=== PATIENT | male | born 1985 | race American Indian/Alaskan Native ===

== ENCOUNTER 2016-11-04 11:41 | Inpatient (IN) | payer MEDICAID ==
[2016-11-04] MEDS ORDERED: NACL 0.9% 1000 ML 1,000 ML IV ONE (12:11)
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
--- NOTE | 2016-11-04 12:45 | XRay Report ---
AP CHEST: HISTORY: Shortness of breath, chills, nausea Near-complete opacification of the right lung is unchanged since 05/07/16. Large areas of atelectasis in the right lung are suspected. Superimposed infiltrate cannot be excluded. The left lung is hyperaerated but clear. Heart size is grossly normal. No overwhelming change since 05/07/16 exam.
[2016-11-04 13:04] LABS: Basophils % (Auto) 0.4 % (0.0-1.8); Eosinophils % (Auto) 0.5 % (0.0-4.3); Hematocrit 37.3 % (35.5-45.6); Hemoglobin 12.2 gm/dl (11.8-15.2); Mean Corpuscular HGB Conc 33 % (32-34); Mean Corpuscular Hemoglobin 28 pg (28-32); Mean Corpuscular Volume 85 fl (84-94); Platelet Count 231 K/mm3 (140-440); Red Blood Count 4.41 M/mm3 (3.65-5.03); White Blood Count 9.8 K/mm3 (4.5-11.0)
[2016-11-04 13:19] LABS: Alanine Aminotransferase 7 units/L (7-56); Albumin 2.9 g/dL (3.9-5); Albumin/Globulin Ratio 0.6 %; Alkaline Phosphatase 49 units/L (35-129); Anion Gap 20 mmol/L; BUN/Creatinine Ratio 23.33; Blood Urea Nitrogen 14 mg/dL (9-20); Calcium 8.1 mg/dL (8.4-10.2); Carbon Dioxide 19 mmol/L (22-30); Glucose 116 mg/dL (75-100); Sodium 137 mmol/L (137-145); Total Protein 7.8 g/dL (6.3-8.2)
[2016-11-04 15:31] LABS: Bacteria,Urine 1+ /HPF (Negative); Bilirubin,Urine NEG (Negative); Blood,Urine LG (Negative); Ketones,Urine NEG (Negative); Leukocyte Esterase,Urine LG (Negative); Mucus,Urine FEW /HPF; Nitrite,Urine NEG (Negative); Urobilinogen,Urine < 2.0 mg/dL (<2.0)
[2016-11-04 15:49] LABS: Protein,Urine >500 mg/dL (Negative); RBC,Urine > 182.0 /HPF (0.0-6.0); WBC,Urine > 182.0 /HPF (0.0-6.0)
[2016-11-04] MEDS ORDERED: TYLENOL PO PRN (16:21)
[2016-11-04] MEDS ORDERED: PROVENTIL IH PRN (16:21)
--- NOTE | 2016-11-04 16:25 | History and Physical Report ---
History of Present Illness Chief complaint: I just feel sick History of present illness: 31 YO Male with C-6 Paraplegia, Urinary retention presents to ED for evaluation. Pt states that he has experienced chills, loose stools, nausea for the past 6 days, and has felt progressively weak over the past 1 day. Pt denies CP, Palpitations, Syncope, recent ill contacts. Pt seen and evaluated in ED and found to have suprapubic tenderness and evidence of UTI. Past History Past Medical History: other (Paraplegia, urinary retention) Past Surgical History: Other (Suprapubic Catheter, Back surgery) Social history: single. denies: smoking, alcohol abuse, prescription drug abuse Family history: no significant family history (reviewed) Medications and Allergies Allergies Allergy/AdvReac Type Severity Reaction Status Date / Time No Known Allergies Allergy Unverified 10/07/15 16:50 Home Medications Medication Instructions Recorded Confirmed Last Taken Type Amoxicillin/K Clav Tab [Augmentin 1 tab PO Q12HR #14 tab 05/08/16 Unknown Rx 875 mg] Multivitamin Tab [Multiple Vitamin 1 each PO QDAY #30 tablet 05/08/16 Unknown Rx TAB (Theragran)] oxyCODONE /ACETAMINOPHEN [Percocet 1 tab PO Q6H PRN #30 tablet 05/08/16 Unknown Rx 5/325 mg] Potassium Chloride [K-Dur] 20 meq PO QDAY #14 tablet 05/09/16 Unknown Rx Active Meds: Active Medications Acetaminophen (Tylenol) 650 mg PO Q4H PRN PRN Reason: Pain MILD(1-3)/Fever >100.5/WILEY Albuterol (Proventil) 2.5 mg IH Q4HRT PRN PRN Reason: Shortness Of Breath Sodium Chloride (Nacl 0.45% 1000 Ml) 1,000 mls @ 42 mls/hr IV DIRECT FRANC Ceftriaxone Sodium (Rocephin/Ns 2 Gm/100 Ml) 2 gm in 100 mls @ 200 mls/hr IV Q24HR FRANC PRN Reason: Protocol Review of Systems Constitutional: chills, no weight loss, no weight gain, no weakness Ears, nose, mouth and throat: no ear pain, no ear discharge, no tinnitis, no decreased hearing, no nose pain, no nasal congestion Cardiovascular: no chest pain, no orthopnea, no palpitations, no rapid/ irregular heart beat, no edema Respiratory: no cough, no cough with sputum, no excessive sputum, no hemoptysis Gastrointestinal: nausea, no vomiting, no diarrhea, no constipation, no change in bowel habits Genitourinary Male: no hematuria, no discharge Rectal: no pain, no incontinence, no bleeding Musculoskeletal: no neck stiffness, no neck pain, no shooting arm pain, no arm numbness/tingling Integumentary: no rash, no pruritis, no redness, no sores, no wounds Neurological: no head injury, no transient paralysis, no paralysis, no weakness , no parathesias, no numbness Psychiatric: no anxiety, no memory loss, no change in sleep habits, no sleep disturbances Endocrine: no cold intolerance, no heat intolerance, no polyphagia, no excessive thirst, no polydipsia, no polyuria Hematologic/Lymphatic: no easy bruising, no easy bleeding Allergic/Immunologic: no urticaria, no allergic rhinitis, no wheezing Exam - Constitutional Vitals: Temp Pulse Resp BP Pulse Ox 98.7 F 92 H 18 139/110 98 11/04/16 12:05 11/04/16 12:05 11/04/16 12:05 11/04/16 12:05 11/04/16 12:05 General appearance: Present: mild distress - EENT Eyes: Present: PERRL ENT: hearing intact, clear oral mucosa - Neck Neck: Present: supple, normal ROM - Respiratory Respiratory: bilateral: diminished - Cardiovascular Heart Sounds: Present: S1 & S2. Absent: rub, click - Extremities Extremities: pulses symmetrical, No edema Peripheral Pulses: within normal limits - Abdominal General gastrointestinal: Present: soft, tender, normal bowel sounds Localized gastrointestinal: tender: suprapubic Male genitourinary: Present: normal - Integumentary Integumentary: Present: clear, dry, decreased turgor - Musculoskeletal Musculoskeletal: generalized weakness - Psychiatric Psychiatric: appropriate mood/affect, intact judgment & insight - Neurologic Neurologic: CNII-XII intact, no moves all extremities, no gait normal Results - Labs CBC & Chem 7: 11/04/16 12:45 11/04/16 12:45 Labs: Abnormal lab results 11/04/16 11/04/16 11/04/16 Range/Units 12:45 12:45 14:57 RDW 16.0 H (13.2-15.2) % Lymph % (Auto) 11.9 L (13.4-35.0) % [place] % (Auto) 14.3 H (0.0-7.3) % [place] # 1.4 H (0.0-0.8) K/mm3 Seg Neutrophils % 72.9 H (40.0-70.0) % Carbon Dioxide 19 L (22-30) mmol/L Creatinine 0.6 L (0.8-1.5) mg/dL Glucose 116 H (75-100) mg/dL Calcium 8.1 L (8.4-10.2) mg/dL Albumin 2.9 L (3.9-5) g/dL Urine WBC (Auto) > 182.0 H (0.0-6.0) /HPF Assessment and Plan - Patient Problems (1) Acute UTI (urinary tract infection) Current Visit: Yes Status: Acute Plan to address problem: IV abx, ivf, supportive care. (2) Metabolic acidosis Current Visit: Yes Status: Acute Plan to address problem: IVF replacement, treat UTI, repeat lactic acid (3) Severe malnutrition Current Visit: Yes Status: Acute Plan to address problem: encourage increased protein intake (4) Paraplegia Current Visit: Yes Status: Chronic Plan to address problem: supportive care, q 2 turns, (5) Dehydration Current Visit: No Status: Acute Plan to address problem: IVF resuscitation, monitor uop q shift (6) DVT prophylaxis Current Visit: Yes Status: Acute
[2016-11-04] MEDS: ROCEPHIN/NS 2 GM/100 ML 2 GM/100 ML BAG IV SCH (17:56)
[2016-11-04] MEDS: NACL 0.45% 1000 ML 1,000 ML IV SCH (22:59)
[2016-11-05] MEDS ORDERED: PERCOCET 5/325 PO PRN (07:53)
[2016-11-05 09:21] LABS: Anion Gap 20 mmol/L; BUN/Creatinine Ratio 22.85; Blood Urea Nitrogen 16 mg/dL (9-20); Calcium 7.9 mg/dL (8.4-10.2); Carbon Dioxide 20 mmol/L (22-30); Chloride 100.6 mmol/L (98-107); Glucose 83 mg/dL (75-100); Potassium 3.1 mmol/L (3.6-5.0); Sodium 137 mmol/L (137-145)
[2016-11-05] MEDS: THERAGRAN Tab PO SCH (11:24)
[2016-11-05] MEDS: ROCEPHIN/NS 2 GM/100 ML 2 GM/100 ML BAG IV SCH (11:25)
[2016-11-05] MEDS ORDERED: K-DUR PO ONE ×2 (11:36→12:00)
--- NOTE | 2016-11-05 11:40 | Progress Note ---
Assessment and Plan Assessment and plan: Sepsis secondary to UTI - Sepsis evidenced by tachycardia and fever - Patient is on IV ceftriaxone - Urine culture is pending Severe malnutrition -Nutrition consult placed Paraplegia - Supportive care DVT prophylaxis -On Lovenox Disposition -Possible discharge tomorrow History Interval history: Patient was seen and evaluated this morning, patient denied any fever or chills. Hospitalist Physical - Physical exam Narrative exam: Not in cardiopulmonary distress. The patient is emaciated. Vital signs as documented. Head exam is unremarkable. No scleral icterus . Neck is without jugular venous distension, thyromegaly, or carotid bruits. Lungs are clear to auscultation. Cardiac exam reveals regular rate and Rhythm. Abdominal exam reveal suprapubic catheter. Extremities paraplegia. 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 - Constitutional Vitals: Temp Pulse Resp BP Pulse Ox 97.3 F L 78 18 81/60 98 11/05/16 07:30 11/05/16 07:30 11/05/16 07:30 11/05/16 07:30 11/05/16 10:00 General appearance: Present: mild distress Results - Labs CBC & Chem 7: 11/04/16 12:45 11/05/16 08:41 Labs: Laboratory Last Values WBC 9.8 K/mm3 (4.5-11.0) 11/04/16 12:45 RBC 4.41 M/mm3 (3.65-5.03) 11/04/16 12:45 Hgb 12.2 gm/dl (11.8-15.2) 11/04/16 12:45 Hct 37.3 % (35.5-45.6) 11/04/16 12:45 MCV 85 fl (84-94) 11/04/16 12:45 MCH 28 pg (28-32) 11/04/16 12:45 MCHC 33 % (32-34) 11/04/16 12:45 RDW 16.0 % (13.2-15.2) H 11/04/16 12:45 Plt Count 231 K/mm3 (140-440) 11/04/16 12:45 Lymph % (Auto) 11.9 % (13.4-35.0) L 11/04/16 12:45 [place] % (Auto) 14.3 % (0.0-7.3) H 11/04/16 12:45 Eos % (Auto) 0.5 % (0.0-4.3) 11/04/16 12:45 Baso % (Auto) 0.4 % (0.0-1.8) 11/04/16 12:45 Lymph # 1.2 K/mm3 (1.2-5.4) 11/04/16 12:45 [place] # 1.4 K/mm3 (0.0-0.8) H 11/04/16 12:45 Eos # 0.1 K/mm3 (0.0-0.4) 11/04/16 12:45 Baso # 0.0 K/mm3 (0.0-0.1) 11/04/16 12:45 Seg Neutrophils % 72.9 % (40.0-70.0) H 11/04/16 12:45 Seg Neutrophils # 7.1 K/mm3 (1.8-7.7) 11/04/16 12:45 Sodium 137 mmol/L (137-145) 11/05/16 08:41 Potassium 3.1 mmol/L (3.6-5.0) L 11/05/16 08:41 Chloride 100.6 mmol/L (98-107) 11/05/16 08:41 Carbon Dioxide 20 mmol/L (22-30) L 11/05/16 08:41 Anion Gap 20 mmol/L 11/05/16 08:41 BUN 16 mg/dL (9-20) 11/05/16 08:41 Creatinine 0.7 mg/dL (0.8-1.5) L 11/05/16 08:41 Estimated GFR > 60 ml/min 11/05/16 08:41 BUN/Creatinine Ratio 22.85 % 11/05/16 08:41 Glucose 83 mg/dL (75-100) 11/05/16 08:41 Lactic Acid 1.80 mmol/L (0.7-2.0) 11/04/16 12:45 Calcium 7.9 mg/dL (8.4-10.2) L 11/05/16 08:41 Total Bilirubin 1.20 mg/dL (0.1-1.2) 11/04/16 12:45 AST 10 units/L (5-40) 11/04/16 12:45 ALT 7 units/L (7-56) 11/04/16 12:45 Alkaline Phosphatase 49 units/L (35-129) 11/04/16 12:45 Total Protein 7.8 g/dL (6.3-8.2) 11/04/16 12:45 Albumin 2.9 g/dL (3.9-5) L 11/04/16 12:45 Albumin/Globulin Ratio 0.6 % 11/04/16 12:45 Urine Color Red (Yellow) 11/04/16 14:57 Urine Turbidity Cloudy (Clear) 11/04/16 14:57 Urine pH 7.0 (5.0-7.0) 11/04/16 14:57 Ur Specific [place] 1.014 (1.003-1.030) 11/04/16 14:57 Urine Protein >500 mg/dL (Negative) 11/04/16 14:57 Urine Glucose (UA) 50 mg/dL (Negative) 11/04/16 14:57 Urine Ketones Neg mg/dL (Negative) 11/04/16 14:57 Urine Blood Lg (Negative) 11/04/16 14:57 Urine Nitrite Neg (Negative) 11/04/16 14:57 Urine Bilirubin Neg (Negative) 11/04/16 14:57 Urine Urobilinogen < 2.0 mg/dL (<2.0) 11/04/16 14:57 Ur Leukocyte Esterase Lg (Negative) 11/04/16 14:57 Urine WBC (Auto) > 182.0 /HPF (0.0-6.0) H 11/04/16 14:57 Urine RBC (Auto) > 182.0 /HPF (0.0-6.0) 11/04/16 14:57 U Epithel Cells (Auto) 1.0 /HPF (0-13.0) 11/04/16 14:57 Urine Bacteria (Auto) 1+ /HPF (Negative) 11/04/16 14:57 Urine WBC Clumps 3+ /HPF 11/04/16 14:57 Urine Mucus Few /HPF 11/04/16 14:57
[2016-11-05] MEDS: LOVENOX SUB-Q SCH (23:06)
[2016-11-05] MEDS: NACL 0.45% 1000 ML 1,000 ML IV SCH (23:35)
[2016-11-06 08:13] LABS: Basophils % (Auto) 0.4 % (0.0-1.8); Eosinophils % (Auto) 1.2 % (0.0-4.3); Hematocrit 36.4 % (35.5-45.6); Mean Corpuscular HGB Conc 33 % (32-34); Mean Corpuscular Hemoglobin 28 pg (28-32); Mean Corpuscular Volume 84 fl (84-94); Platelet Count 255 K/mm3 (140-440); Red Blood Count 4.32 M/mm3 (3.65-5.03); Red Cell Distribution Width 16.3 % (13.2-15.2); White Blood Count 12.2 K/mm3 (4.5-11.0)
[2016-11-06 08:36] LABS: Anion Gap 22 mmol/L; Blood Urea Nitrogen 18 mg/dL (9-20); Calcium 8.3 mg/dL (8.4-10.2); Carbon Dioxide 19 mmol/L (22-30); Chloride 101.2 mmol/L (98-107); Glucose 79 mg/dL (75-100); Potassium 3.7 mmol/L (3.6-5.0); Sodium 138 mmol/L (137-145)
--- NOTE | 2016-11-06 08:44 | Progress Note ---
Assessment and Plan Assessment and plan: Severe sepsis with hypotension secondary to UTI - Sepsis evidenced by tachycardia, hypotension and fever - The BP is normal when checked with small BP cuff - Patient is on IV ceftriaxone - Obtain blood culture - Urine culture is pending Severe malnutrition -Nutrition consult placed Paraplegia - Supportive care DVT prophylaxis -On Lovenox Disposition - Continue inpatient care History Interval history: Patient was seen and evaluated this morning, patient denied any fever or chills. Last night the patient has low blood pressure and was given bolus of normal saline. His blood pressure this morning was low, Bp was normal when checked with small cuff. Hospitalist Physical - Physical exam Narrative exam: Not in cardiopulmonary distress. The patient is emaciated. Vital signs as documented. Head exam is unremarkable. No scleral icterus. Neck is without jugular venous distension, thyromegaly, or carotid bruits. Lungs are clear to auscultation. Cardiac exam reveals regular rate and Rhythm. Abdominal exam reveal suprapubic catheter. Extremities paraplegia. 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 - Constitutional Vitals: Temp Pulse Resp BP Pulse Ox 99.3 F 104 H 14 67/37 97 11/06/16 08:15 11/05/16 23:15 11/06/16 08:15 11/06/16 08:15 11/06/16 03:01 General appearance: Present: mild distress Results - Labs CBC & Chem 7: 11/06/16 07:55 11/06/16 07:55 Labs: Laboratory Last Values WBC 12.2 K/mm3 (4.5-11.0) H 11/06/16 07:55 RBC 4.32 M/mm3 (3.65-5.03) 11/06/16 07:55 Hgb 12.0 gm/dl (11.8-15.2) 11/06/16 07:55 Hct 36.4 % (35.5-45.6) 11/06/16 07:55 MCV 84 fl (84-94) 11/06/16 07:55 MCH 28 pg (28-32) 11/06/16 07:55 MCHC 33 % (32-34) 11/06/16 07:55 RDW 16.3 % (13.2-15.2) H 11/06/16 07:55 Plt Count 255 K/mm3 (140-440) 11/06/16 07:55 Lymph % (Auto) 10.5 % (13.4-35.0) L 11/06/16 07:55 [place] % (Auto) 7.7 % (0.0-7.3) H 11/06/16 07:55 Eos % (Auto) 1.2 % (0.0-4.3) 11/06/16 07:55 Baso % (Auto) 0.4 % (0.0-1.8) 11/06/16 07:55 Lymph # 1.3 K/mm3 (1.2-5.4) 11/06/16 07:55 [place] # 0.9 K/mm3 (0.0-0.8) H 11/06/16 07:55 Eos # 0.1 K/mm3 (0.0-0.4) 11/06/16 07:55 Baso # 0.0 K/mm3 (0.0-0.1) 11/06/16 07:55 Seg Neutrophils % 80.2 % (40.0-70.0) H 11/06/16 07:55 Seg Neutrophils # 9.8 K/mm3 (1.8-7.7) H 11/06/16 07:55 Sodium 138 mmol/L (137-145) 11/06/16 07:55 Potassium 3.7 mmol/L (3.6-5.0) 11/06/16 07:55 Chloride 101.2 mmol/L (98-107) 11/06/16 07:55 Carbon Dioxide 19 mmol/L (22-30) L 11/06/16 07:55 Anion Gap 22 mmol/L 11/06/16 07:55 BUN 18 mg/dL (9-20) 11/06/16 07:55 Creatinine 0.8 mg/dL (0.8-1.5) 11/06/16 07:55 Estimated GFR > 60 ml/min 11/06/16 07:55 BUN/Creatinine Ratio 22.50 % 11/06/16 07:55 Glucose 79 mg/dL (75-100) 11/06/16 07:55 Lactic Acid 1.80 mmol/L (0.7-2.0) 11/04/16 12:45 Calcium 8.3 mg/dL (8.4-10.2) L 11/06/16 07:55 Total Bilirubin 1.20 mg/dL (0.1-1.2) 11/04/16 12:45 AST 10 units/L (5-40) 11/04/16 12:45 ALT 7 units/L (7-56) 11/04/16 12:45 Alkaline Phosphatase 49 units/L (35-129) 11/04/16 12:45 Total Protein 7.8 g/dL (6.3-8.2) 11/04/16 12:45 Albumin 2.9 g/dL (3.9-5) L 11/04/16 12:45 Albumin/Globulin Ratio 0.6 % 11/04/16 12:45 Urine Color Red (Yellow) 11/04/16 14:57 Urine Turbidity Cloudy (Clear) 11/04/16 14:57 Urine pH 7.0 (5.0-7.0) 11/04/16 14:57 Ur Specific [place] 1.014 (1.003-1.030) 11/04/16 14:57 Urine Protein >500 mg/dL (Negative) 11/04/16 14:57 Urine Glucose (UA) 50 mg/dL (Negative) 11/04/16 14:57 Urine Ketones Neg mg/dL (Negative) 11/04/16 14:57 Urine Blood Lg (Negative) 11/04/16 14:57 Urine Nitrite Neg (Negative) 11/04/16 14:57 Urine Bilirubin Neg (Negative) 11/04/16 14:57 Urine Urobilinogen < 2.0 mg/dL (<2.0) 11/04/16 14:57 Ur Leukocyte Esterase Lg (Negative) 11/04/16 14:57 Urine WBC (Auto) > 182.0 /HPF (0.0-6.0) H 11/04/16 14:57 Urine RBC (Auto) > 182.0 /HPF (0.0-6.0) 11/04/16 14:57 U Epithel Cells (Auto) 1.0 /HPF (0-13.0) 11/04/16 14:57 Urine Bacteria (Auto) 1+ /HPF (Negative) 11/04/16 14:57 Urine WBC Clumps 3+ /HPF 11/04/16 14:57 Urine Mucus Few /HPF 11/04/16 14:57
[2016-11-06] MEDS ORDERED: NACL 0.9% 1000 ML 1,000 ML IV SCH (09:00)
[2016-11-06] MEDS: THERAGRAN Tab PO SCH (09:55)
[2016-11-06] MEDS: ROCEPHIN/NS 2 GM/100 ML 2 GM/100 ML BAG IV SCH (09:55)
[2016-11-06] MEDS: LOVENOX SUB-Q SCH (21:51)
[2016-11-07 07:00] LABS: Basophils % (Auto) 1.5 % (0.0-1.8); Eosinophils % (Auto) 4.2 % (0.0-4.3); Hematocrit 33.6 % (35.5-45.6); Hemoglobin 11.1 gm/dl (11.8-15.2); Mean Corpuscular HGB Conc 33 % (32-34); Mean Corpuscular Hemoglobin 28 pg (28-32); Mean Corpuscular Volume 84 fl (84-94); Platelet Count 284 K/mm3 (140-440); Red Blood Count 4.02 M/mm3 (3.65-5.03); Red Cell Distribution Width 16.1 % (13.2-15.2); White Blood Count 11.2 K/mm3 (4.5-11.0)
[2016-11-07 07:13] LABS: Alanine Aminotransferase 8 units/L (7-56); Albumin/Globulin Ratio 0.7 %; Alkaline Phosphatase 60 units/L (35-129); Anion Gap 18 mmol/L; BUN/Creatinine Ratio 25.71; Blood Urea Nitrogen 18 mg/dL (9-20); Carbon Dioxide 21 mmol/L (22-30); Chloride 103.4 mmol/L (98-107); Glucose 104 mg/dL (75-100); Potassium 3.6 mmol/L (3.6-5.0); Sodium 139 mmol/L (137-145); Total Protein 7.5 g/dL (6.3-8.2)
[2016-11-07 07:40] VITALS: BP 93/66
[2016-11-07] MEDS: ROCEPHIN/NS 2 GM/100 ML 2 GM/100 ML BAG IV SCH (10:00)
[2016-11-07] MEDS: THERAGRAN Tab PO SCH (11:00)
--- NOTE | 2016-11-07 11:30 | Discharge Summary ---
Providers - Providers Date of Admission: 11/04/16 16:21 Date of discharge: 11/07/16 Attending physician: GUADALUPE CANO MD 11/05/16 07:54 Consult to Dietitian/Nutrition [CONS] Routine Physician Instructions: Reason For Exam: Reason for Consult: Malnutrition 11/06/16 15:54 Consult to Wound/ET Nurse [CONS] Routine Reason For Exam: wound eval Primary care physician: BANK APPRAISER Hospitalization Reason for admission: sepsis, UTI Condition: Stable Hospital course: 31 YO Male with C-6 Paraplegia, Urinary retention presents to ED for evaluation. Pt states that he has experienced chills, loose stools, nausea for the past 6 days, and has felt progressively weak over the past 1 day. Pt denies CP, Palpitations, Syncope, recent ill contacts. Pt seen and evaluated in ED and found to have suprapubic tenderness and evidence of UTI. Patient was admitted to the floor and he was managed for sepsis secondary to UTI according to sepsis protocol with IV antibiotics and fluids. Lactic acid level was normal. Blood cultures negative so far, urine cultures still pending. Patient's WBC Count trended down. Yesterday the patient has recovered to low blood pressure but when it was rechecked was small BP cuff it was normal. Patient was discharged with by mouth Levaquin to be continued as an outpatient. Patient has suprapubic catheter and was change it during this admission. Patient was hemodynamically stable at the time of discharge. Patient's concerns and questions what I decided the bedside. Patient discharged home. Disposition: TO HOME OR SELFCARE Time spent for discharge: 31 minutes - Discharge Diagnoses (1) Sepsis Status: Acute Qualifiers: Sepsis type: S (2) Acute UTI (urinary tract infection) Status: Acute (3) UTI (urinary tract infection) Status: Acute Qualifiers: Urinary tract infection type: U Hematuria presence: H Indwelling urinary catheter type: I Encounter type: E (4) Paraplegia Status: Chronic Core Measure Documentation - Palliative Care Palliative Care/ Comfort Measures: Not Applicable - Core Measures Any of the following diagnoses?: none Exam - Physical Exam Narrative exam: Not in cardiopulmonary distress. The patient is emaciated. Vital signs as documented. Head exam is unremarkable. No scleral icterus. Neck is without jugular venous distension, thyromegaly, or carotid bruits. Lungs are clear to auscultation. Cardiac exam reveals regular rate and Rhythm. Abdominal exam reveal suprapubic catheter. Extremities paraplegia. 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 - Constitutional Vitals: Temp Pulse Resp BP Pulse Ox 98.7 F 86 20 93/66 96 11/07/16 07:34 11/07/16 07:34 11/07/16 07:34 11/07/16 07:34 11/07/16 08:42 Plan Activity: other (Paraplegic) Weight Bearing Status: Non-Weight Bearing Diet: regular Follow up with: PRIMARY CARE, [Primary Care Provider] - 3-5 Days Prescriptions: Levofloxacin [Levaquin TAB] 500 mg PO QDAY #5 tablet
== END 2016-11-07 15:00 | disposition home or self-care (01) | DRG 871 ==
LOC: ED 11:41 → 3A 16:21
PROVIDERS: ADMIT Internal Medicine; ATTEND Internal Medicine
DX: A41.9 Sepsis, unspecified organism (principal); E43 Unspecified severe protein-calorie malnutrition; N39.0 Urinary tract infection, site not specified; E86.0 Dehydration; G82.20 Paraplegia, unspecified; R33.9 Retention of urine, unspecified; E87.2 Acidosis; Z68.1 Body mass index [BMI] 19.9 or less, adult; R65.20 Severe sepsis without septic shock
CPT/HCPCS: 36415; 71010; 80048; 80053; 81001; 82140; 85025; 87040; 87086; 96361; 96365; J0696; J1650; J7030

== ENCOUNTER 2016-12-05 08:00 | Outpatient (CLI) | payer MEDICAID ==
[2016-12-05] MEDS ORDERED: XYLOCAINE TOPICAL 4% TP ONE ×2 (08:15→08:23)
[2016-12-05] MEDS ORDERED: SILVER NITRATE TP ONE ×3 (11:17→16:12)
== END 2016-12-05 08:01 | disposition home or self-care (01) ==
LOC: WOUND 08:00
PROVIDERS: ATTEND Internal Medicine
DX: L97.521 Non-pressure chronic ulcer of other part of left foot limited to breakdown of skin (principal); L97.511 Non-pressure chronic ulcer of other part of right foot limited to breakdown of skin; L89.624 Pressure ulcer of left heel, stage 4; L89.522 Pressure ulcer of left ankle, stage 2; E44.0 Moderate protein-calorie malnutrition; G99.0 Autonomic neuropathy in diseases classified elsewhere; G82.54 Quadriplegia, C5-C7 incomplete; Z87.891 Personal history of nicotine dependence
CPT/HCPCS: 11042; G0463

== ENCOUNTER 2016-12-12 08:01 | Outpatient (CLI) | payer MEDICAID ==
[2016-12-12] MEDS ORDERED: XYLOCAINE TOPICAL 2% ONE (08:26)
[2016-12-12] MEDS ORDERED: XYLOCAINE TOPICAL 2% TP ONE (08:34)
[2016-12-12] MEDS ORDERED: SILVER NITRATE TP ONE ×2 (09:08→15:39)
== END 2016-12-12 08:02 | disposition home or self-care (01) ==
LOC: WOUND 08:01
PROVIDERS: ATTEND Internal Medicine
DX: L97.521 Non-pressure chronic ulcer of other part of left foot limited to breakdown of skin (principal); L97.511 Non-pressure chronic ulcer of other part of right foot limited to breakdown of skin; L89.624 Pressure ulcer of left heel, stage 4; L89.522 Pressure ulcer of left ankle, stage 2; E44.0 Moderate protein-calorie malnutrition; G82.20 Paraplegia, unspecified; Z87.891 Personal history of nicotine dependence

== ENCOUNTER 2016-12-19 08:25 | Outpatient (CLI) | payer MEDICAID | END 2016-12-19 08:26 | disposition home or self-care (01) | LOC: WOUND 08:25 | PROVIDERS: ATTEND Internal Medicine | DX: L89.624 Pressure ulcer of left heel, stage 4 (principal); L89.522 Pressure ulcer of left ankle, stage 2; L97.521 Non-pressure chronic ulcer of other part of left foot limited to breakdown of skin; L97.511 Non-pressure chronic ulcer of other part of right foot limited to breakdown of skin; E44.0 Moderate protein-calorie malnutrition; G99.0 Autonomic neuropathy in diseases classified elsewhere; G82.54 Quadriplegia, C5-C7 incomplete; Z87.891 Personal history of nicotine dependence ==

== ENCOUNTER 2016-12-29 11:46 | Emergency (ER) | payer MEDICAID ==
[2016-12-29 14:16] VITALS: BP 100/65
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
--- NOTE | 2016-12-29 15:29 | XRay Report ---
Single view chest: Compared to 11/04/16. Findings: Shift of mediastinum to the right. Decrease in volume of right lung which is visualized minimally peripherally. Otherwise no significant interval change. Impression: Partially visualized right lung. No otherwise interval change.
[2016-12-29 15:39] LABS: Hematocrit 34.9 % (35.5-45.6); Hemoglobin 11.7 gm/dl (11.8-15.2); Mean Corpuscular HGB Conc 33 % (32-34); Mean Corpuscular Hemoglobin 27 pg (28-32); Mean Corpuscular Volume 82 fl (84-94); Platelet Count 367 K/mm3 (140-440); Red Blood Count 4.26 M/mm3 (3.65-5.03); Red Cell Distribution Width 17.4 % (13.2-15.2); White Blood Count 12.2 K/mm3 (4.5-11.0)
[2016-12-29 15:50] LABS: Anion Gap 23 mmol/L; BUN/Creatinine Ratio 40; Blood Urea Nitrogen 20 mg/dL (9-20); Calcium 8.9 mg/dL (8.4-10.2); Carbon Dioxide 20 mmol/L (22-30); Chloride 99.5 mmol/L (98-107); Creatine Kinase 67 units/L (55-170); Glucose 68 mg/dL (75-100); Potassium 3.8 mmol/L (3.6-5.0); Sodium 139 mmol/L (137-145)
[2016-12-29 17:01] LABS: Bilirubin,Urine NEG (Negative); Blood,Urine LG (Negative); Ketones,Urine 20 mg/dL (Negative); Leukocyte Esterase,Urine MOD (Negative); Nitrite,Urine NEG (Negative); RBC,Urine > 182.0 /HPF (0.0-6.0); Urobilinogen,Urine < 2.0 mg/dL (<2.0); WBC,Urine > 182.0 /HPF (0.0-6.0)
[2016-12-29] MEDS ORDERED: XYLOCAINE 1% MPF 5 mL INFILTRATI ONE (17:27)
[2016-12-29] MEDS ORDERED: ROCEPHIN IM ONE (17:27)
== END 2016-12-29 21:37 | disposition home or self-care (01) ==
LOC: ED 11:46
DX: T83.098A Other mechanical complication of other urinary catheter, initial encounter (principal); R53.1 Weakness; J98.11 Atelectasis; G82.20 Paraplegia, unspecified; Z87.891 Personal history of nicotine dependence; Z98.890 Other specified postprocedural states
CPT/HCPCS: 36415; 51702; 71010; 80048; 81001; 82550; 85027; 87086; 96372; 99284; J0696

== ENCOUNTER 2017-01-16 09:38 | Outpatient (CLI) | payer MEDICAID | END 2017-01-16 09:39 | disposition home or self-care (01) | LOC: WOUND 09:38 | PROVIDERS: ATTEND Internal Medicine | DX: L89.624 Pressure ulcer of left heel, stage 4 (principal); L89.522 Pressure ulcer of left ankle, stage 2; L89.892 Pressure ulcer of other site, stage 2; L89.323 Pressure ulcer of left buttock, stage 3; L97.521 Non-pressure chronic ulcer of other part of left foot limited to breakdown of skin; L97.511 Non-pressure chronic ulcer of other part of right foot limited to breakdown of skin; E44.0 Moderate protein-calorie malnutrition; G82.54 Quadriplegia, C5-C7 incomplete; Z87.891 Personal history of nicotine dependence ==

== ENCOUNTER 2017-05-09 15:32 | Inpatient (IN) | payer MEDICAID ==
[2017-05-09] MEDS ORDERED: NACL 0.9% 500 ML 500 ML IV ONE (16:12)
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
[2017-05-09] MEDS ORDERED: ZOFRAN ONE (16:37)
[2017-05-09 16:45] LABS: Hematocrit 51.7 % (35.5-45.6); Hemoglobin 16.9 gm/dl (11.8-15.2); Mean Corpuscular HGB Conc 33 % (32-34); Mean Corpuscular Hemoglobin 28 pg (28-32); Mean Corpuscular Volume 86 fl (84-94); Platelet Count 300 K/mm3 (140-440); Red Blood Count 6.03 M/mm3 (3.65-5.03); Red Cell Distribution Width 17.3 % (13.2-15.2)
[2017-05-09] MEDS ORDERED: ZOFRAN IV ONE ×2 (16:50→18:20)
[2017-05-09 16:55] LABS: INR 1.03 (0.87-1.13)
[2017-05-09 17:02] LABS: Alanine Aminotransferase 8 units/L (7-56); Albumin 4.5 g/dL (3.9-5); BUN/Creatinine Ratio 15; Blood Urea Nitrogen 15 mg/dL (9-20); Calcium 9.5 mg/dL (8.4-10.2); Hemolysis Index 14
[2017-05-09] MEDS ORDERED: NACL 0.9% 1000 ML 1,000 ML ONE (17:30)
[2017-05-09] MEDS ORDERED: NACL 0.9% 1000 ML 1,000 ML IV ONE ×3 (17:36→22:50)
[2017-05-09 17:45] LABS: Basophils % (Manual) 0 % (0.0-1.8); Eosinophils % (Manual) 0 % (0.0-4.3); Total Cells Counted 100
[2017-05-09 17:46] LABS: Anisocytosis 1+; Large Platelets Few; Platelet Estimate Consistent w Auto; Poikilocytosis 1+
[2017-05-09] MEDS: ZOSYN/NS 3.375GM/50ML 3.375 GM/50 ML BAG IV SCH (18:10)
--- NOTE | 2017-05-09 18:16 | History and Physical Report ---
History of Present Illness Chief complaint: I feel sick History of present illness: 32 YO Male with C-6 Paraplegia, Urinary retention with Suprapubic Catheter in Place presents to ED for evaluation. Pt states that he has experienced shaking chills, cold sweats, and subjective feverfor the past 2 days, and has felt progressively weak over the past 1 day. Pt denies CP, Palpitations, Syncope, recent ill contacts. Pt seen and evaluated in ED and found to have Sepsis. Pt initiated on sepsis protocol and admitted to the medical floor. Past History Past Medical History: other (Paraplegia, Urinary retention) Past Surgical History: Other (Right Pneumonectomy, Suprapubic catheter placement. ) Social history: single. denies: smoking, alcohol abuse, prescription drug abuse Family history: hypertension Medications and Allergies Allergies Allergy/AdvReac Type Severity Reaction Status Date / Time No Known Allergies Allergy Unverified 10/07/15 16:50 Home Medications Medication Instructions Recorded Confirmed Last Taken Type Multivitamin Tab [Multiple Vitamin 1 each PO QDAY #30 tablet 05/08/16 Unknown Rx TAB (Theragran)] oxyCODONE /ACETAMINOPHEN [Percocet 1 tab PO Q6H PRN #30 tablet 05/08/16 Unknown Rx 5/325 mg] Potassium Chloride [K-Dur] 20 meq PO QDAY #14 tablet 05/09/16 Unknown Rx Levofloxacin [Levaquin TAB] 500 mg PO QDAY #5 tablet 11/07/16 Unknown Rx Nitrofurantoin [place]/M-Cryst 100 mg PO Q12HR #14 capsule 12/29/16 Unknown Rx [Macrobid CAP] Active Meds: Active Medications Piperacillin Sod/Tazobactam Sod (Zosyn/Ns 3.375gm/50ml) 3.375 gm in 50 mls @ 100 mls/hr IV Q6HR FRANC Last Admin: 05/09/17 18:10 Dose: 100 mls/hr Sodium Chloride (Nacl 0.9% 1000 Ml) 1,000 mls @ 999 mls/hr IV BOLUS ONE Stop: 05/09/17 18:36 Last Admin: 05/09/17 17:36 Dose: 999 mls/hr Review of Systems Constitutional: fever, chills, sweats, no weight loss, no weight gain Ears, nose, mouth and throat: no ear pain, no ear discharge, no tinnitis, no decreased hearing, no nose pain, no nasal congestion, no nasal discharge Cardiovascular: no chest pain, no orthopnea, no palpitations, no rapid/ irregular heart beat, no edema, no syncope Respiratory: cough, no hemoptysis Gastrointestinal: no abdominal pain, no nausea, no vomiting, no diarrhea, no constipation Genitourinary Male: no hematuria, no flank pain, no discharge Rectal: no pain Musculoskeletal: no neck stiffness, no neck pain, no shooting arm pain, no hot joints Integumentary: no rash, no pruritis, no redness, no sores, no wounds Neurological: no head injury, no seizures, no syncope, no tremors, no vertigo, no migraines, no change in speech Psychiatric: no anxiety, no memory loss, no change in sleep habits, no sleep disturbances, no insomnia, no hypersomnia, no change in appetite Endocrine: no cold intolerance, no heat intolerance, no polyphagia, no excessive thirst, no polydipsia, no polyuria, no nocturia Hematologic/Lymphatic: no easy bruising, no easy bleeding, no lymphadenopathy, no lymphedema Allergic/Immunologic: no urticaria, no allergic rhinitis, no wheezing, no persistent infections, no anaphylaxis Exam - Constitutional Vitals: Temp Pulse Resp BP Pulse Ox 97.6 F 102 H 20 112/88 100 05/09/17 16:06 05/09/17 16:12 05/09/17 16:44 05/09/17 16:12 05/09/17 16:44 General appearance: Present: mild distress - EENT Eyes: Present: PERRL ENT: hearing intact, clear oral mucosa - Neck Neck: Present: supple, normal ROM - Respiratory Respiratory: right: diminished - Cardiovascular Rhythm: other (tachycardia) Heart Sounds: Present: S1 & S2. Absent: rub, click - Extremities Extremities: pulses symmetrical, No edema Peripheral Pulses: abnormal (Capillary refill greater than 3.6 seconds) - Abdominal General gastrointestinal: Present: soft, non-tender, non-distended, normal bowel sounds Male genitourinary: Present: normal - Integumentary Integumentary: Present: clear, dry, clammy, decreased turgor - Musculoskeletal Musculoskeletal: generalized weakness - Psychiatric Psychiatric: appropriate mood/affect, intact judgment & insight, memory intact - Neurologic Neurologic: focal deficits, no moves all extremities, no gait normal Results - Labs CBC & Chem 7: 18 16:37 18 16:37 Labs: Abnormal lab results 18 18 18 Range/Units 16:37 16:37 16:37 WBC 20.2 H (4.5-11.0) K/mm3 RBC 6.03 H (3.65-5.03) M/mm3 Hgb 16.9 H (11.8-15.2) gm/dl Hct 51.7 H (35.5-45.6) % RDW 17.3 H (13.2-15.2) % Seg Neuts % (Manual) 89.0 H (40.0-70.0) % Lymphocytes % (Manual) 8.0 L (13.4-35.0) % Seg Neutrophils # Man 18.0 H (1.8-7.7) K/mm3 VBG pH (7.320-7.420) Lactic Acid 6.30 H* (0.7-2.0) mmol/L Total Protein 9.5 H (6.3-8.2) g/dL 05/09/17 Range/Units 16:37 WBC (4.5-11.0) K/mm3 RBC (3.65-5.03) M/mm3 Hgb (11.8-15.2) gm/dl Hct (35.5-45.6) % RDW (13.2-15.2) % Seg Neuts % (Manual) (40.0-70.0) % Lymphocytes % (Manual) (13.4-35.0) % Seg Neutrophils # Man (1.8-7.7) K/mm3 VBG pH 7.260 L (7.320-7.420) Lactic Acid (0.7-2.0) mmol/L Total Protein (6.3-8.2) g/dL Assessment and Plan - Patient Problems (1) Sepsis Current Visit: Yes Status: Acute Qualifiers: Sepsis type: sepsis due to unspecified organism Qualified Code(s): A41.9 - Sepsis, unspecified organism Plan to address problem: Sepsis protocol: IV antibiotics, IVF resuscitation, monitor uop q shift, serial lactic acid levels, supportive care, Chest X ray, (2) Catheter-associated urinary tract infection Current Visit: Yes Status: Suspected Qualifiers: Encounter type: initial encounter Plan to address problem: IV antibiotics, monitor uop q shift, urinalysis, supportive care, (3) Lactic acid acidosis Current Visit: Yes Status: Acute Plan to address problem: Treat sepsis, IVF, supportive care, serial lactic acid levels. (4) Paraplegia Current Visit: Yes Status: Acute Plan to address problem: Chronic, wound care, Q 2 turns, (5) DVT prophylaxis Current Visit: Yes Status: Acute
[2017-05-09] MEDS ORDERED: MORPHINE IV ONE (18:20)
--- NOTE | 2017-05-09 19:25 | XRay Report ---
FINAL REPORT EXAM: XR CHEST 1V AP HISTORY: possible Sepsis TECHNIQUE: Frontal chest x-ray. PRIORS: Chest x-ray January 24, 2016. FINDINGS: Cardiac silhouette is obscured. Right mediastinal shift is unchanged. Opacification of the right hemithorax with right perihilar surgical artifacts is unchanged compared to the prior. Left lung is hyperaerated. No pneumothorax, consolidation, or effusion. There are no suspicious osseous lesions. IMPRESSION: Right pneumonectomy with post surgical changes. Left lung is clear. Stable chest.
[2017-05-09 22:05] LABS: Bilirubin,Urine NEG (Negative); Blood,Urine LG (Negative); Color,Urine Red (Yellow); Mucus,Urine FEW /HPF; Urobilinogen,Urine < 2.0 mg/dL (<2.0)
[2017-05-09 22:14] LABS: RBC,Urine > 182.0 /HPF (0.0-6.0); WBC,Urine > 182.0 /HPF (0.0-6.0)
[2017-05-10] MEDS: ZOSYN/NS 3.375GM/50ML 3.375 GM/50 ML BAG IV SCH ×4 (00:15→18:52)
[2017-05-10] MEDS ORDERED: MORPHINE ONE (00:21)
[2017-05-10] MEDS ORDERED: ZOFRAN ONE (00:21)
--- NOTE | 2017-05-10 09:56 | Progress Note ---
Assessment and Plan // Sepsis likely from UTI Sepsis protocol: IV antibiotics, IVF resuscitation, monitor uop q shift, serial lactic acid levels, supportive care, Chest X ray, // Catheter-associated urinary tract infection IV antibiotics, monitor uop q shift, urinalysis, supportive care, // hypotension likely from sepsis, BP stable with IV fluid // Lactic acid acidosis Treat sepsis, IVF, supportive care, serial lactic acid levels. // Paraplegia continue supportive care, Q 2 turns, // hypokalemia, cont to monitor and replace // DVT prophylaxis lovenox Brief history: 32 YO Male with C-6 Paraplegia, Urinary retention with Suprapubic Catheter in Place presents to ED with shaking chills, cold sweats, and subjective fever for the past 2 days, and has felt progressively weak over the past 1 day. In ED initial work up showed UTI, hyporension, WBC of ~ 20,000 and lacid acid 2.1. Pt initiated on sepsis protocol and admitted to the ICU. Radiological test: cxr- right pneumectomy with post surgical change Hospitalist Physical exam: GENERAL: well-developed AAM lying on bed appeared to be in no discomfort. HEENT: Normocephalic. Atraumatic. No conjunctival congestion or icterus. Patient has moist mucous membranes. NECK: Supple. Trachea midline. CHEST/LUNGS: Clear to auscultated bilaterally, breathing nonlabored. No wheezes crackles or rhonchi. HEART/CARDIOVASCULAR: Regular in rate and rhythm. S1 and S2 positive. ABDOMEN: Abdomen is soft, nontender. Patient has normal bowel sounds. Suprapubic catheter in place SKIN: There is no rash. Warm and dry. NEURO: paraplegic. Follows command. MUSCULOSKELETAL: No joint effusion or tenderness. EXTRIMITY: No edema, no cyanosis or clubbing. PSYCH: Cooperative. Subjective Date of service: 05/10/17 Interval history: Pt seen and examined no new complaint BP running low but maintaining MAP with IV fluid Objective - Constitutional Vitals: Vital Signs - 12hr 05/09/17 05/09/17 05/09/17 22:13 22:15 22:31 Temperature Pulse Rate 67 76 Respiratory 28 H 20 21 Rate Blood Pressure 75/47 Blood Pressure [Left] O2 Sat by Pulse Oximetry 05/09/17 05/09/17 05/09/17 22:45 23:01 23:10 Temperature Pulse Rate 78 64 73 Respiratory 17 21 17 Rate Blood Pressure 67/39 144/116 144/116 Blood Pressure 77/49 [Left] O2 Sat by Pulse 99 Oximetry 05/09/17 05/09/17 05/09/17 23:15 23:20 23:30 Temperature Pulse Rate 58 L 59 L 75 Respiratory 26 H 22 20 Rate Blood Pressure 155/125 144/116 155/125 Blood Pressure [Left] O2 Sat by Pulse Oximetry 05/09/17 05/10/17 05/10/17 23:45 00:00 00:15 Temperature Pulse Rate 70 65 87 Respiratory 22 24 24 Rate Blood Pressure 106/82 151/112 151/112 Blood Pressure [Left] O2 Sat by Pulse Oximetry 05/10/17 05/10/17 05/10/17 00:30 00:45 01:01 Temperature Pulse Rate 82 74 71 Respiratory 17 15 23 Rate Blood Pressure 76/48 62/33 69/34 Blood Pressure [Left] O2 Sat by Pulse Oximetry 05/10/17 05/10/17 05/10/17 01:15 01:30 01:45 Temperature Pulse Rate 68 74 83 Respiratory 17 17 17 Rate Blood Pressure 99/67 68/34 75/43 Blood Pressure [Left] O2 Sat by Pulse Oximetry 05/10/17 05/10/17 05/10/17 02:00 02:15 02:30 Temperature Pulse Rate 73 76 80 Respiratory 17 18 17 Rate Blood Pressure 68/43 75/48 85/60 Blood Pressure [Left] O2 Sat by Pulse Oximetry 05/10/17 05/10/17 05/10/17 02:45 03:00 03:15 Temperature Pulse Rate 74 70 63 Respiratory 18 14 20 Rate Blood Pressure 101/78 98/67 110/79 Blood Pressure [Left] O2 Sat by Pulse Oximetry 05/10/17 05/10/17 05/10/17 03:30 03:45 04:01 Temperature Pulse Rate 70 63 66 Respiratory 22 19 21 Rate Blood Pressure 102/75 99/77 148/115 Blood Pressure [Left] O2 Sat by Pulse Oximetry 05/10/17 05/10/17 05/10/17 04:15 04:30 04:45 Temperature Pulse Rate 67 64 75 Respiratory 17 20 17 Rate Blood Pressure 112/82 117/78 77/35 Blood Pressure [Left] O2 Sat by Pulse Oximetry 05/10/17 05/10/17 05/10/17 05:00 05:15 05:30 Temperature Pulse Rate 45 L 72 53 L Respiratory 18 15 23 Rate Blood Pressure 135/105 135/105 66/42 Blood Pressure [Left] O2 Sat by Pulse Oximetry 05/10/17 05/10/17 05/10/17 05:45 05:57 07:30 Temperature 98 F Pulse Rate 47 L 67 79 Respiratory 23 18 19 Rate Blood Pressure 95/70 Blood Pressure 116/85 108/84 [Left] O2 Sat by Pulse 98 95 Oximetry - Labs CBC & Chem 7: 05/11/17 05:38 05/11/17 05:38 Labs: Abnormal lab results 05/09/17 05/09/17 05/09/17 Range/Units 16:37 16:37 16:37 WBC 20.2 H (4.5-11.0) K/mm3 RBC 6.03 H (3.65-5.03) M/mm3 Hgb 16.9 H (11.8-15.2) gm/dl Hct 51.7 H (35.5-45.6) % RDW 17.3 H (13.2-15.2) % Seg Neuts % (Manual) 89.0 H (40.0-70.0) % Lymphocytes % (Manual) 8.0 L (13.4-35.0) % Seg Neutrophils # Man 18.0 H (1.8-7.7) K/mm3 VBG pH (7.320-7.420) Lactic Acid 6.30 H* (0.7-2.0) mmol/L Total Protein 9.5 H (6.3-8.2) g/dL Urine WBC (Auto) (0.0-6.0) /HPF 05/09/17 05/09/17 05/09/17 Range/Units 16:37 19:00 Unknown WBC (4.5-11.0) K/mm3 RBC (3.65-5.03) M/mm3 Hgb (11.8-15.2) gm/dl Hct (35.5-45.6) % RDW (13.2-15.2) % Seg Neuts % (Manual) (40.0-70.0) % Lymphocytes % (Manual) (13.4-35.0) % Seg Neutrophils # Man (1.8-7.7) K/mm3 VBG pH 7.260 L (7.320-7.420) Lactic Acid 2.10 H* (0.7-2.0) mmol/L Total Protein (6.3-8.2) g/dL Urine WBC (Auto) > 182.0 H (0.0-6.0) /HPF
[2017-05-10 10:42] LABS: Hematocrit 43.2 % (35.5-45.6); Hemoglobin 13.9 gm/dl (11.8-15.2); Mean Corpuscular HGB Conc 32 % (32-34); Mean Corpuscular Hemoglobin 28 pg (28-32); Mean Corpuscular Volume 87 fl (84-94); Platelet Count 211 K/mm3 (140-440); Red Cell Distribution Width 16.9 % (13.2-15.2)
[2017-05-10] MEDS: NACL 0.9% 1000 ML 1,000 ML IV SCH ×2 (12:38→18:52)
--- NOTE | 2017-05-10 13:35 | Consultation ---
History of Present Illness Consult date: 05/10/17 Requesting physician: ANA BAUMANN Reason for consult: other (Sepsis Syndrome; CAUTI) History of present illness: PULMONARY/CCM CONSULT NOTE (Full dictation # [id number]) Please see dictated notes for full details Past History Past Medical History: other (Paraplegia, Urinary retention) Past Surgical History: Other (Right Pneumonectomy, Suprapubic catheter placement. ) Social history: single. denies: smoking, alcohol abuse, prescription drug abuse Family history: hypertension Medications and Allergies Allergies Allergy/AdvReac Type Severity Reaction Status Date / Time No Known Allergies Allergy Unverified 10/07/15 16:50 Home Medications Medication Instructions Recorded Confirmed Last Taken Type No Known Home Medications [No 05/09/17 05/09/17 Unknown History Reported Home Medications] Active Meds: Active Medications Piperacillin Sod/Tazobactam Sod (Zosyn/Ns 3.375gm/50ml) 3.375 gm in 50 mls @ 100 mls/hr IV Q6HR FRANC Last Admin: 05/10/17 12:38 Dose: 100 mls/hr Sodium Chloride (Nacl 0.9% 1000 Ml) 1,000 mls @ 150 mls/hr IV DIRECT FRANC Last Admin: 05/10/17 12:38 Dose: 150 mls/hr Physical Examination Vital signs: Vital Signs Temp Pulse Resp BP Pulse Ox 97.6 F 106 H 22 67/33 93 05/09/17 16:06 05/09/17 16:06 05/09/17 16:06 05/09/17 16:06 05/09/17 16:06 Results - Laboratory Findings CBC and BMP: 05/10/17 10:05 05/09/17 16:37 PT/INR, D-dimer PT 14.0 Sec. (12.2-14.9) 05/09/17 16:37 INR 1.03 (0.87-1.13) 05/09/17 16:37 Abnormal lab findings: Abnormal Labs 05/09/17 05/09/17 05/09/17 16:37 16:37 16:37 WBC 20.2 H RBC 6.03 H Hgb 16.9 H Hct 51.7 H RDW 17.3 H Seg Neuts % (Manual) 89.0 H Lymphocytes % (Manual) 8.0 L Seg Neutrophils # Man 18.0 H VBG pH Lactic Acid 6.30 H* Total Protein 9.5 H Urine WBC (Auto) 05/09/17 05/09/17 05/09/17 16:37 19:00 Unknown WBC RBC Hgb Hct RDW Seg Neuts % (Manual) Lymphocytes % (Manual) Seg Neutrophils # Man VBG pH 7.260 L Lactic Acid 2.10 H* Total Protein Urine WBC (Auto) > 182.0 H 05/10/17 10:05 WBC 15.7 H RBC Hgb Hct RDW 16.9 H Seg Neuts % (Manual) Lymphocytes % (Manual) Seg Neutrophils # Man VBG pH Lactic Acid Total Protein Urine WBC (Auto)
[2017-05-10] MEDS: PEPCID PO SCH (22:22)
[2017-05-10] MEDS: HEPARIN SUB-Q SCH (22:22)
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
[2017-05-10] MEDS ORDERED: PERCOCET 5/325 PO PRN (23:20)
[2017-05-10] MEDS ORDERED: PERCOCET 5/325 ONE (23:48)
[2017-05-11] MEDS ORDERED: ULTRAM PO PRN (00:15)
[2017-05-11] MEDS: ZOSYN/NS 3.375GM/50ML 3.375 GM/50 ML BAG IV SCH ×3 (02:30→16:53)
[2017-05-11 05:54] LABS: Basophils # (Auto) 0.1 K/mm3 (0.0-0.1); Basophils % (Auto) 0.9 % (0.0-1.8); Eosinophils # (Auto) 0.5 K/mm3 (0.0-0.4); Eosinophils % (Auto) 3.6 % (0.0-4.3); Hematocrit 37.3 % (35.5-45.6); Hemoglobin 11.9 gm/dl (11.8-15.2); Lymphocytes # (Auto) 2.1 K/mm3 (1.2-5.4); Lymphocytes % (Auto) 16.7 % (13.4-35.0); Mean Corpuscular HGB Conc 32 % (32-34); Mean Corpuscular Hemoglobin 27 pg (28-32); Mean Corpuscular Volume 86 fl (84-94); Monocytes # (Auto) 0.8 K/mm3 (0.0-0.8); Monocytes % (Auto) 6.6 % (0.0-7.3); Platelet Count 219 K/mm3 (140-440); Red Blood Count 4.32 M/mm3 (3.65-5.03); Red Cell Distribution Width 16.5 % (13.2-15.2)
[2017-05-11 06:04] LABS: BUN/Creatinine Ratio 13; Blood Urea Nitrogen 9 mg/dL (9-20); Calcium 7.8 mg/dL (8.4-10.2); Hemolysis Index 6
[2017-05-11] MEDS: HEPARIN SUB-Q SCH ×2 (11:09→21:23)
[2017-05-11] MEDS: NACL 0.9% 1000 ML 1,000 ML IV SCH ×2 (11:10→17:00)
[2017-05-11] MEDS: PEPCID PO SCH ×2 (13:45→21:22)
[2017-05-11] MEDS: VITAMIN C PO SCH (13:45)
[2017-05-11] MEDS: THERAGRAN Tab PO SCH (13:46)
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
--- NOTE | 2017-05-12 00:06 | Progress Note ---
Assessment and Plan // Sepsis likely from UTI Sepsis protocol: IV antibiotics, IVF resuscitation, monitor uop q shift, serial lactic acid levels, supportive care, Chest X ray, // Catheter-associated urinary tract infection IV antibiotics, monitor uop q shift, urinalysis, supportive care, // hypotension likely from sepsis, BP stable with IV fluid // Lactic acid acidosis Treat sepsis, IVF, supportive care, serial lactic acid levels. // Paraplegia continue supportive care, Q 2 turns, // hypokalemia, cont to monitor and replace // DVT prophylaxis lovenox Brief history: 32 YO Male with C-6 Paraplegia, Urinary retention with Suprapubic Catheter in Place presents to ED with shaking chills, cold sweats, and subjective fever for the past 2 days, and has felt progressively weak over the past 1 day. In ED initial work up showed UTI, hyporension, WBC of ~ 20,000 and lacid acid 2.1. Pt initiated on sepsis protocol and admitted to the ICU. Radiological test: cxr- right pneumectomy with post surgical change Hospitalist Physical exam: GENERAL: well-developed AAM lying on bed appeared to be in no discomfort. HEENT: Normocephalic. Atraumatic. No conjunctival congestion or icterus. Patient has moist mucous membranes. NECK: Supple. Trachea midline. CHEST/LUNGS: Clear to auscultated bilaterally, breathing nonlabored. No wheezes crackles or rhonchi. HEART/CARDIOVASCULAR: Regular in rate and rhythm. S1 and S2 positive. ABDOMEN: Abdomen is soft, nontender. Patient has normal bowel sounds. Suprapubic catheter in place SKIN: There is no rash. Warm and dry. NEURO: paraplegic. Follows command. MUSCULOSKELETAL: No joint effusion or tenderness. EXTRIMITY: No edema, no cyanosis or clubbing. PSYCH: Cooperative. Subjective Date of service: 05/11/17 Interval history: Pt seen and examined no new complaint BP running low but maintaining MAP with IV fluid will transfer to tele Objective - Constitutional Vitals: Vital Signs - 12hr 05/11/17 05/11/17 05/11/17 16:00 16:02 16:03 Temperature 98.4 F Pulse Rate 60 58 L Respiratory 18 20 Rate Blood Pressure 155/117 Blood Pressure [Left] O2 Sat by Pulse 99 89 90 Oximetry 05/11/17 05/11/17 05/11/17 16:35 19:59 20:35 Temperature 98.4 F 99.2 F Pulse Rate 57 L 91 H Respiratory 20 18 16 Rate Blood Pressure 99/67 Blood Pressure 155/117 [Left] O2 Sat by Pulse 90 89 Oximetry 05/11/17 23:57 Temperature 99.1 F Pulse Rate 82 Respiratory 16 Rate Blood Pressure 140/100 Blood Pressure [Left] O2 Sat by Pulse 89 Oximetry - Labs CBC & Chem 7: 05/11/17 05:38 05/11/17 05:38 Labs: Abnormal lab results 05/11/17 05/11/17 Range/Units 05:38 05:38 WBC 12.8 H (4.5-11.0) K/mm3 MCH 27 L (28-32) pg RDW 16.5 H (13.2-15.2) % Eos # 0.5 H (0.0-0.4) K/mm3 Seg Neutrophils % 72.2 H (40.0-70.0) % Seg Neutrophils # 9.2 H (1.8-7.7) K/mm3 Potassium 3.5 L (3.6-5.0) mmol/L Creatinine 0.7 L (0.8-1.5) mg/dL Calcium 7.8 L D (8.4-10.2) mg/dL
[2017-05-12] MEDS: ZOSYN/NS 3.375GM/50ML 3.375 GM/50 ML BAG IV SCH ×5 (00:58→20:02)
[2017-05-12] MEDS: NACL 0.9% 1000 ML 1,000 ML IV SCH ×3 (00:59→20:39)
[2017-05-12] MEDS: HEPARIN SUB-Q SCH ×2 (11:16→21:27)
[2017-05-12] MEDS: PEPCID PO SCH ×2 (11:17→21:27)
[2017-05-12] MEDS: K-DUR PO SCH (11:20)
[2017-05-12] MEDS: THERAGRAN Tab PO SCH (11:21)
[2017-05-12] MEDS: VITAMIN C PO SCH (11:21)
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
--- NOTE | 2017-05-12 20:47 | Progress Note ---
Assessment and Plan // Sepsis likely from UTI Sepsis protocol: IV antibiotics, IVF resuscitation, monitor uop q shift, serial lactic acid levels, supportive care Initial urine culture appears to be contaminated, blood culture negative We'll repeat a urine culture // Catheter-associated urinary tract infection IV antibiotics, monitor uop q shift, urinalysis, supportive care, // hypotension likely from sepsis, BP stable with IV fluid // Lactic acid acidosis Treat sepsis, IVF, supportive care, serial lactic acid levels. // Paraplegia continue supportive care, Q 2 turns, // hypokalemia, cont to monitor and replace // DVT prophylaxis lovenox Brief history: 32 YO Male with C-6 Paraplegia, Urinary retention with Suprapubic Catheter in Place presents to ED with shaking chills, cold sweats, and subjective fever for the past 2 days, and has felt progressively weak over the past 1 day. In ED initial work up showed UTI, hyporension, WBC of ~ 20,000 and lacid acid 2.1. Pt initiated on sepsis protocol and admitted to the ICU. Radiological test: cxr- right pneumectomy with post surgical change Hospitalist Physical exam: GENERAL: well-developed AAM lying on bed appeared to be in no discomfort. HEENT: Normocephalic. Atraumatic. No conjunctival congestion or icterus. Patient has moist mucous membranes. NECK: Supple. Trachea midline. CHEST/LUNGS: Clear to auscultated bilaterally, breathing nonlabored. No wheezes crackles or rhonchi. HEART/CARDIOVASCULAR: Regular in rate and rhythm. S1 and S2 positive. ABDOMEN: Abdomen is soft, nontender. Patient has normal bowel sounds. Suprapubic catheter in place SKIN: There is no rash. Warm and dry. NEURO: paraplegic. Follows command. MUSCULOSKELETAL: No joint effusion or tenderness. EXTRIMITY: No edema, no cyanosis or clubbing. PSYCH: Cooperative. Subjective Date of service: 05/12/17 Interval history: Pt seen and examined no new complaint He wants to go home, stated will be discharged tomorrow if repeat urine culture negative Objective - Constitutional Vitals: Vital Signs - 12hr 05/12/17 05/12/17 05/12/17 12:07 16:08 20:16 Temperature 98.1 F 98.8 F 98.9 F Pulse Rate 59 L 74 Respiratory 18 18 17 Rate Blood Pressure 189/123 175/130 [Left] O2 Sat by Pulse 91 91 Oximetry 05/12/17 05/12/17 05/12/17 20:17 20:22 20:34 Temperature 98.9 F 97.4 F L Pulse Rate 69 66 71 Respiratory 17 20 Rate Blood Pressure 136/95 116/60 [Left] O2 Sat by Pulse 94 95 98 Oximetry - Labs CBC & Chem 7: 05/11/17 05:38 05/11/17 05:38
[2017-05-13] MEDS: ZOSYN/NS 3.375GM/50ML 3.375 GM/50 ML BAG IV SCH ×3 (05:19→11:18)
[2017-05-13] MEDS: NACL 0.9% 1000 ML 1,000 ML IV SCH ×2 (05:46→11:22)
[2017-05-13 08:54] VITALS: BP 123/95
[2017-05-13] MEDS: THERAGRAN Tab PO SCH (11:18)
[2017-05-13] MEDS: K-DUR PO SCH (11:18)
[2017-05-13] MEDS: VITAMIN C PO SCH (11:18)
[2017-05-13] MEDS: HEPARIN SUB-Q SCH (11:19)
[2017-05-13] MEDS: PEPCID PO SCH (11:22)
--- NOTE | 2017-05-13 12:03 | Discharge Summary ---
Providers - Providers Date of Admission: 05/09/17 19:26 Date of discharge: 05/13/17 Attending physician: JERZY GUTIERREZ 05/09/17 19:34 Consult to Physician [CONS] Routine Consulting Provider: DAVEY ROSA Reason For Exam: CCU Place consult to:: Dr. Rosa Notified:: her number Phone number called:: her number Was contact made?: Yes If yes, spoke with:: Dr. Rosa Time called:: 19:36 Primary care physician: TRANSPORTATION AGENT Hospitalization Condition: Stable Hospital course: Brief history: 32 YO Male with C-6 Paraplegia, Urinary retention with Suprapubic Catheter in Place presents to ED with shaking chills, cold sweats, and subjective fever for the past 2 days, and has felt progressively weak over the past 1 day. In ED initial work up showed UTI, hyporension, WBC of ~ 20,000 and lacid acid 2.1. Pt initiated on sepsis protocol and admitted to the ICU. Discharge diagnosis and management: // Sepsis likely from UTI Sepsis protocol: IV antibiotics, IVF resuscitation, monitor uop q shift, serial lactic acid levels, supportive care Initial urine culture appears to be contaminated, blood culture negative We'll repeat a urine culture // Catheter-associated urinary tract infection IV antibiotics, monitor uop q shift, urinalysis, supportive care, // hypotension likely from sepsis, BP stable with IV fluid // Lactic acid acidosis Treat sepsis, IVF, supportive care, serial lactic acid levels. // Paraplegia continue supportive care, Q 2 turns, // hypokalemia, cont to monitor and replace // DVT prophylaxis lovenox Radiological test: cxr- right pneumectomy with post surgical change Hospitalist Physical exam: GENERAL: well-developed AAM lying on bed appeared to be in no discomfort. HEENT: Normocephalic. Atraumatic. No conjunctival congestion or icterus. Patient has moist mucous membranes. NECK: Supple. Trachea midline. CHEST/LUNGS: Clear to auscultated bilaterally, breathing nonlabored. No wheezes crackles or rhonchi. HEART/CARDIOVASCULAR: Regular in rate and rhythm. S1 and S2 positive. ABDOMEN: Abdomen is soft, nontender. Patient has normal bowel sounds. Suprapubic catheter in place SKIN: There is no rash. Warm and dry. NEURO: paraplegic. Follows command. MUSCULOSKELETAL: No joint effusion or tenderness. EXTRIMITY: No edema, no cyanosis or clubbing. PSYCH: Cooperative. Disposition: DC/TX-06 HOME UNDER HOME [facility] Time spent for discharge: 32 minutes Core Measure Documentation - Palliative Care Palliative Care/ Comfort Measures: Not Applicable - Core Measures Any of the following diagnoses?: none Exam - Constitutional Vitals: Temp Pulse Resp BP Pulse Ox 98.7 F 56 L 18 123/95 97 05/13/17 07:28 05/13/17 10:00 05/13/17 07:28 05/13/17 07:28 05/13/17 07:28 Plan Activity: up only with assistance Weight Bearing Status: Non-Weight Bearing Diet: regular, other (turn on bed every 2 hours) Follow up with: PRIMARY CARE, [Primary Care Provider] - 3-5 Days Prescriptions: Levofloxacin [Levaquin] 750 mg PO QDAY #5 tablet
[2017-05-13 12:46] LABS: Hematocrit 33.9 % (35.5-45.6); Hemoglobin 11.2 gm/dl (11.8-15.2); Mean Corpuscular HGB Conc 33 % (32-34); Mean Corpuscular Hemoglobin 28 pg (28-32); Mean Corpuscular Volume 84 fl (84-94); Platelet Count 222 K/mm3 (140-440); Red Blood Count 4.02 M/mm3 (3.65-5.03); Red Cell Distribution Width 15.8 % (13.2-15.2)
[2017-05-13 12:58] LABS: BUN/Creatinine Ratio 8; Blood Urea Nitrogen 5 mg/dL (9-20); Calcium 7.8 mg/dL (8.4-10.2); Hemolysis Index 2
== END 2017-05-13 17:52 | disposition home health service (06) | DRG 698 ==
LOC: ED 15:32 → CC1 19:26 → 4A 05-11 09:29
PROVIDERS: ADMIT Internal Medicine; ATTEND Internal Medicine
DX: T83.511A Infection and inflammatory reaction due to indwelling urethral catheter, initial encounter (principal); A41.9 Sepsis, unspecified organism; E43 Unspecified severe protein-calorie malnutrition; G82.20 Paraplegia, unspecified; E87.6 Hypokalemia; Y83.8 Other surgical procedures as the cause of abnormal reaction of the patient, or of later complication, without mention of misadventure at the time of the procedure; N39.0 Urinary tract infection, site not specified; Z68.1 Body mass index [BMI] 19.9 or less, adult; Z82.49 Family history of ischemic heart disease and other diseases of the circulatory system; Y92.89 Other specified places as the place of occurrence of the external cause
CPT/HCPCS: 36415; 71045; 80048; 80053; 81001; 82140; 82805; 83735; 84100; 85007; 85025; 85027; 85610; 86140; 87040; 87086; 87400; 93005; 93010; J1644; J2270; J2405; J2543; J7030; J7040

== ENCOUNTER 2017-09-04 | Inpatient (IN) | payer MEDICAID ==
[2017-09-04] MEDS ORDERED: NACL 0.9% 500 ML 500 ML IV ONE (00:22)
[2017-09-04 00:50] LABS: Hemoglobin 12.8 gm/dl (11.8-15.2); Red Blood Count 4.52 M/mm3 (3.65-5.03)
[2017-09-04 00:51] LABS: Basophils % (Auto) 0.4 % (0.0-1.8); Eosinophils # (Auto) 0.2 K/mm3 (0.0-0.4); Eosinophils % (Auto) 1.9 % (0.0-4.3); Hematocrit 39.1 % (35.5-45.6); Lymphocytes # (Auto) 1.7 K/mm3 (1.2-5.4); Lymphocytes % (Auto) 16.7 % (13.4-35.0); Mean Corpuscular HGB Conc 33 % (32-34); Mean Corpuscular Hemoglobin 28 pg (28-32); Mean Corpuscular Volume 87 fl (84-94); Monocytes # (Auto) 0.8 K/mm3 (0.0-0.8); Monocytes % (Auto) 7.5 % (0.0-7.3); Platelet Count 301 K/mm3 (140-440); Red Cell Distribution Width 14.9 % (13.2-15.2)
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
[2017-09-04 01:03] LABS: INR 1.13 (0.87-1.13)
[2017-09-04 01:06] LABS: BUN/Creatinine Ratio 25; Blood Urea Nitrogen 15 mg/dL (9-20); Calcium 8.9 mg/dL (8.4-10.2); Hemolysis Index 7
[2017-09-04 01:08] LABS: Albumin 3.6 g/dL (3.9-5); BUN/Creatinine Ratio 25; Blood Urea Nitrogen 15 mg/dL (9-20); Calcium 8.6 mg/dL (8.4-10.2); Hemolysis Index 15
--- NOTE | 2017-09-04 01:14 | XRay Report ---
FINAL REPORT EXAM: XR CHEST 1V AP HISTORY: possible Sepsis TECHNIQUE: A portable supine view the chest was obtained and compared to the study of 05/09/2017. FINDINGS: There is compensatory hyperinflation of the left lung with shift of the mediastinum toward the right side. There is minimal aerated lung in the upper 3rd of the right hemithorax. There has been previous subtotal right pneumonectomy. There are no localized infiltrates or congestion. The heart size is normal. The skeletal structures are unchanged from the previous study. IMPRESSION: Compensatory hyperinflation of the left lung with mediastinal shift toward the right side. Subtotal right pneumonectomy with minimal aerated lung in the upper 3rd of the right hemithorax. No localized infiltrates or congestion.
[2017-09-04 01:18] LABS: Alanine Aminotransferase < 5 units/L (7-56)
[2017-09-04 01:45] LABS: Bacteria,Urine 4+ /HPF (Negative); Bilirubin,Urine NEG (Negative); Blood,Urine MOD (Negative); Color,Urine Red (Yellow); Mucus,Urine 3+ /HPF; Urobilinogen,Urine < 2.0 mg/dL (<2.0)
[2017-09-04 01:53] LABS: Protein,Urine >500 mg/dL (Negative); WBC,Urine < 1.0 /HPF (0.0-6.0)
[2017-09-04] MEDS ORDERED: MORPHINE IV ONE (03:33)
[2017-09-04] MEDS ORDERED: ZOFRAN IV ONE (03:34)
[2017-09-04] MEDS ORDERED: NACL 0.9% 1000 ML 1,000 ML IV ONE ×2 (03:36→05:49)
[2017-09-04] MEDS ORDERED: ZOSYN/NS 4.5GM/100ML 4.5 GM/100 ML VIAL IV ONE (04:00)
[2017-09-04] MEDS ORDERED: SODIUM CHLORIDE FLUSH SYRINGE 10 ML IV PRN (05:49)
[2017-09-04] MEDS ORDERED: ZOFRAN IV PRN (05:49)
[2017-09-04] MEDS ORDERED: TYLENOL PO PRN (05:49)
--- NOTE | 2017-09-04 05:54 | History and Physical Report ---
History of Present Illness Date of examination: 09/04/17 History of present illness: 35 year old man, paraplegic, was sent to the ER for evaluation of shortness of breath which is now resolved. He has episodes of hypotension and was found to have a urinary tract infection Review of systems Constitutional: no weight loss, chills, fever Ears, eyes, nose, mouth and throat: no nasal congestion, no nasal discharge, no sinus pressure, no vision change, no red eye. Neck: No neck pain or rigidity. Cardiovascular: no chest pain, palpitations Respiratory: no cough, shortness of breath Gastrointestinal: no abdominal pain hematochezia Genitourinary : no frequency , no hematuria Musculoskeletal: no joint swelling or muscle ache Integumentary: no rash, no pruritis Neurological: no parathesias, no numbness, no focal weakness Endocrine: no cold or heat intolerance, no polyuria or polydipsia Hematologic/Lymphatic: no easy bruising, no easy bleeding, no gland swelling Allergic/Immunologic: no urticaria, no angioedema. PAST MEDICAL HISTORY: None PAST SURGICAL HISTORY: Right pneumonectomy, neck surgery SOCIAL HISTORY: No alcohol, no drugs, tobacco FAMILY HISTORY: Hypertension Medications and Allergies Allergies Allergy/AdvReac Type Severity Reaction Status Date / Time No Known Allergies Allergy Verified 09/04/17 00:14 Home Medications Medication Instructions Recorded Confirmed Last Taken Type Multivitamin [Multiple Vitamins] 1 each PO QDAY 05/10/17 09/04/17 Unknown History Ascorbic Acid [Vitamin C] 500 mg PO QDAY 05/11/17 09/04/17 Unknown History Levofloxacin [Levaquin] 750 mg PO QDAY #5 tablet 05/13/17 09/04/17 Unknown Rx Active Meds: Active Medications Acetaminophen (Tylenol) 650 mg PO Q4H PRN PRN Reason: Pain MILD(1-3)/Fever >100.5/WILEY Enoxaparin Sodium (Lovenox) 30 mg SUB-Q QDAY FRANC Sodium Chloride (Nacl 0.9% 1000 Ml) 1,000 mls @ 150 mls/hr IV DIRECT FRANC Sodium Chloride (Nacl 0.9% 1000 Ml) 1,000 mls @ 999 mls/hr IV ONCE ONE Stop: 09/04/17 06:49 Ondansetron HCl (Zofran) 4 mg IV Q8H PRN PRN Reason: Nausea And Vomiting Sodium Chloride (Sodium Chloride Flush Syringe 10 Ml) 10 ml IV BID FRANC Sodium Chloride (Sodium Chloride Flush Syringe 10 Ml) 10 ml IV PRN PRN PRN Reason: LINE FLUSH Exam - Physical Exam Narrative exam: Gen. appearance: Patient lying in bed, no apparent distress HEENT: Normocephalic, atraumatic, pupils equally round and reactive to light, eyes are , extraocular movement intact, and no sclericterus,. No JVD or thyromegaly or nodule,neck supple, no carotid bruit ,mucous membranes dry, no exudate or erythema Heart: S1, S2, regular rate and rhythm Lungs: Clear bilaterally, breathing comfortable Abdomen: Positive bowel sounds, tender in LLQ, nondistended, no organomegaly Extremity:no edema cyanosis, clubbing Skin: no rash, dry,warm, LE wounds Neuro: Oriented 3, paraplegic - Constitutional Vitals: Temp Pulse Resp BP Pulse Ox 97.8 F 64 16 87/55 96 09/04/17 00:15 09/04/17 05:47 09/04/17 05:47 09/04/17 05:47 09/04/17 05:47 Results - Labs CBC & Chem 7: 09/04/17 00:31 09/04/17 00:31 Labs: Abnormal lab results 09/04/17 09/04/17 09/04/17 Range/Units 00:31 00:31 00:31 [place] % (Auto) 7.5 H (0.0-7.3) % Seg Neutrophils % 73.5 H (40.0-70.0) % PT 15.1 H (12.2-14.9) Sec. VBG pH (7.320-7.420) Potassium 3.3 L (3.6-5.0) mmol/L Creatinine 0.6 L (0.8-1.5) mg/dL Glucose (75-100) mg/dL Lactic Acid (0.7-2.0) mmol/L ALT (7-56) units/L Albumin (3.9-5) g/dL Urine pH (5.0-7.0) 09/04/17 09/04/17 09/04/17 Range/Units 00:31 00:35 00:35 [place] % (Auto) (0.0-7.3) % Seg Neutrophils % (40.0-70.0) % PT (12.2-14.9) Sec. VBG pH 7.465 H (7.320-7.420) Potassium 3.4 L (3.6-5.0) mmol/L Creatinine 0.6 L (0.8-1.5) mg/dL Glucose 104 H (75-100) mg/dL Lactic Acid 2.30 H* (0.7-2.0) mmol/L ALT < 5 L (7-56) units/L Albumin 3.6 L (3.9-5) g/dL Urine pH (5.0-7.0) 09/04/17 Range/Units 00:52 [place] % (Auto) (0.0-7.3) % Seg Neutrophils % (40.0-70.0) % PT (12.2-14.9) Sec. VBG pH (7.320-7.420) Potassium (3.6-5.0) mmol/L Creatinine (0.8-1.5) mg/dL Glucose (75-100) mg/dL Lactic Acid (0.7-2.0) mmol/L ALT (7-56) units/L Albumin (3.9-5) g/dL Urine pH 8.0 H (5.0-7.0) Assessment and Plan Assessment Sepsis Urinary Tract Infection Paraplegic Lower extremity wounds Plan Admit to medicine Give fluid bolus, then maintenance fluid Start IV rocephin, follow cultures Wound care, DVT prophalaxis
[2017-09-04] MEDS: NACL 0.9% 1000 ML 1,000 ML IV SCH ×3 (06:00→21:35)
[2017-09-04] MEDS: LOVENOX SUB-Q SCH (11:03)
[2017-09-04] MEDS: SODIUM CHLORIDE FLUSH SYRINGE 10 ML IV SCH ×2 (11:03→21:36)
[2017-09-04] MEDS: ROCEPHIN/NS 1 GM/50 ML 1 GM/50 ML BAG IV SCH (13:02)
[2017-09-04 13:07] LABS: Bilirubin,Urine NEG (Negative); Blood,Urine MOD (Negative); Mucus,Urine 3+ /HPF; Protein,Urine >500 mg/dL (Negative); RBC,Urine > 182.0 /HPF (0.0-6.0); Urobilinogen,Urine < 2.0 mg/dL (<2.0); WBC,Urine > 182.0 /HPF (0.0-6.0)
[2017-09-04 13:09] LABS: Color,Urine Amber (Yellow)
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
[2017-09-05] MEDS: NACL 0.9% 1000 ML 1,000 ML IV SCH ×4 (03:51→23:51)
[2017-09-05 06:55] LABS: Basophils # (Auto) 0.1 K/mm3 (0.0-0.1); Basophils % (Auto) 0.9 % (0.0-1.8); Eosinophils # (Auto) 0.3 K/mm3 (0.0-0.4); Eosinophils % (Auto) 4.5 % (0.0-4.3); Hematocrit 36.6 % (35.5-45.6); Hemoglobin 11.8 gm/dl (11.8-15.2); Lymphocytes # (Auto) 1.4 K/mm3 (1.2-5.4); Lymphocytes % (Auto) 19.8 % (13.4-35.0); Mean Corpuscular HGB Conc 32 % (32-34); Mean Corpuscular Hemoglobin 28 pg (28-32); Mean Corpuscular Volume 87 fl (84-94); Monocytes # (Auto) 0.7 K/mm3 (0.0-0.8); Monocytes % (Auto) 9.4 % (0.0-7.3); Platelet Count 236 K/mm3 (140-440); Red Blood Count 4.22 M/mm3 (3.65-5.03); Red Cell Distribution Width 14.7 % (13.2-15.2)
[2017-09-05] MEDS ORDERED: K-DUR PO ONE (07:00)
[2017-09-05 07:24] LABS: BUN/Creatinine Ratio 18; Blood Urea Nitrogen 9 mg/dL (9-20); Calcium 8.1 mg/dL (8.4-10.2); Hemolysis Index 3
--- NOTE | 2017-09-05 08:49 | Progress Note ---
Assessment and Plan Assessment and plan: Sepsis due to UTI. Continue Zosyn and Ceftriaxone. UTI. On iv Antibiotics No growth on cultures so far. Paraplegia Full code status. History Interval history: Shortness of breath, now resolved no chest pain Hospitalist Physical - Physical exam Narrative exam: Gen : Not in acute distress, HEENT:Normocephalic, atraumatic Neck: supple, No JVD Lungs: Clear to auscultation, bilaterally, no rhonchi Heart :S1 and S2 reg, no murmurs, rubs or gallop Abd:soft, non tender, non distended, normal bowel sounds Ext: No edema, no clubbing, no cyanosis, Neuro: Awake,alert,oriented x 3, paraplegia Psych:normal mood - Constitutional Vitals: Temp Pulse Resp BP Pulse Ox 97.8 F 79 20 139/97 95 09/05/17 06:16 09/05/17 06:16 09/05/17 06:16 09/05/17 06:16 09/05/17 06:16 Results - Labs CBC & Chem 7: 09/05/17 05:10 09/05/17 05:10 Labs: Laboratory Last Values WBC 7.1 K/mm3 (4.5-11.0) 09/05/17 05:10 RBC 4.22 M/mm3 (3.65-5.03) 09/05/17 05:10 Hgb 11.8 gm/dl (11.8-15.2) 09/05/17 05:10 Hct 36.6 % (35.5-45.6) 09/05/17 05:10 MCV 87 fl (84-94) 09/05/17 05:10 MCH 28 pg (28-32) 09/05/17 05:10 MCHC 32 % (32-34) 09/05/17 05:10 RDW 14.7 % (13.2-15.2) 09/05/17 05:10 Plt Count 236 K/mm3 (140-440) 09/05/17 05:10 Lymph % (Auto) 19.8 % (13.4-35.0) 09/05/17 05:10 [place] % (Auto) 9.4 % (0.0-7.3) H 09/05/17 05:10 Eos % (Auto) 4.5 % (0.0-4.3) H 09/05/17 05:10 Baso % (Auto) 0.9 % (0.0-1.8) 09/05/17 05:10 Lymph # 1.4 K/mm3 (1.2-5.4) 09/05/17 05:10 [place] # 0.7 K/mm3 (0.0-0.8) 09/05/17 05:10 Eos # 0.3 K/mm3 (0.0-0.4) 09/05/17 05:10 Baso # 0.1 K/mm3 (0.0-0.1) 09/05/17 05:10 Seg Neutrophils % 65.4 % (40.0-70.0) 09/05/17 05:10 Seg Neutrophils # 4.7 K/mm3 (1.8-7.7) 09/05/17 05:10 PT 15.1 Sec. (12.2-14.9) H 09/04/17 00:31 INR 1.13 (0.87-1.13) 09/04/17 00:31 D-Dimer 171.86 ng/mlDDU (0-234) 09/04/17 00:31 VBG pH 7.465 (7.320-7.420) H 09/04/17 00:35 Sodium 142 mmol/L (137-145) 09/05/17 05:10 Potassium 4.3 mmol/L (3.6-5.0) D 09/05/17 05:10 Chloride 107.2 mmol/L (98-107) H 09/05/17 05:10 Carbon Dioxide 22 mmol/L (22-30) 09/05/17 05:10 Anion Gap 17 mmol/L 09/05/17 05:10 BUN 9 mg/dL (9-20) 09/05/17 05:10 Creatinine 0.5 mg/dL (0.8-1.5) L 09/05/17 05:10 Estimated GFR > 60 ml/min 09/05/17 05:10 BUN/Creatinine Ratio 18 % 09/05/17 05:10 Glucose 80 mg/dL (75-100) 09/05/17 05:10 Lactic Acid 1.90 mmol/L (0.7-2.0) 09/04/17 03:19 Calcium 8.1 mg/dL (8.4-10.2) L 09/05/17 05:10 Total Bilirubin 0.50 mg/dL (0.1-1.2) 09/04/17 00:31 AST 13 units/L (5-40) 09/04/17 00:31 ALT < 5 units/L (7-56) L 09/04/17 00:31 Alkaline Phosphatase 55 units/L (35-129) 09/04/17 00:31 Total Protein 7.6 g/dL (6.3-8.2) 09/04/17 00:31 Albumin 3.6 g/dL (3.9-5) L 09/04/17 00:31 Albumin/Globulin Ratio 0.9 % 09/04/17 00:31 Urine Color [place] (Yellow) 09/04/17 Unknown Urine Turbidity Clear (Clear) 09/04/17 Unknown Urine pH 7.0 (5.0-7.0) 09/04/17 Unknown Ur Specific [place] 1.014 (1.003-1.030) 09/04/17 Unknown Urine Protein >500 mg/dL (Negative) 09/04/17 Unknown Urine Glucose (UA) Neg mg/dL (Negative) 09/04/17 Unknown Urine Ketones Neg mg/dL (Negative) 09/04/17 Unknown Urine Blood Mod (Negative) 09/04/17 Unknown Urine Nitrite Neg (Negative) 09/04/17 Unknown Urine Bilirubin Neg (Negative) 09/04/17 Unknown Urine Urobilinogen < 2.0 mg/dL (<2.0) 09/04/17 Unknown Ur Leukocyte Esterase Mod (Negative) 09/04/17 Unknown Urine WBC (Auto) > 182.0 /HPF (0.0-6.0) H 09/04/17 Unknown Urine RBC (Auto) > 182.0 /HPF (0.0-6.0) 09/04/17 Unknown U Epithel Cells (Auto) 4.0 /HPF (0-13.0) 09/04/17 Unknown Urine Bacteria (Auto) 4+ /HPF (Negative) 09/04/17 00:52 Urine Mucus 3+ /HPF 09/04/17 Unknown
[2017-09-05] MEDS: ROCEPHIN/NS 1 GM/50 ML 1 GM/50 ML BAG IV SCH (09:15)
[2017-09-05] MEDS: LOVENOX SUB-Q SCH (09:17)
[2017-09-05] MEDS: SODIUM CHLORIDE FLUSH SYRINGE 10 ML IV SCH ×2 (09:18→22:38)
[2017-09-06] MEDS: NACL 0.9% 1000 ML 1,000 ML IV SCH (06:06)
--- NOTE | 2017-09-06 08:52 | Discharge Summary ---
Providers - Providers Date of Admission: 09/04/17 05:50 Date of discharge: 09/06/17 Attending physician: YOBANY MORALES 09/04/17 05:59 Consult to Wound/ET Nurse [CONS] Routine Reason For Exam: wound eval Primary care physician: BLUEPRINT READER Hospitalization Condition: Fair Disposition: DC-01 TO HOME OR SELFCARE Exam - Constitutional Vitals: Temp Pulse Resp BP Pulse Ox 97.7 F 65 18 96/67 97 09/06/17 05:54 09/06/17 05:54 09/06/17 05:54 09/06/17 05:54 09/06/17 05:54 Plan Activity: advance as tolerated Diet: regular Additional Instructions: 1.Follow up with PCP in 1 week. Follow up with: PRIMARY CARE,MD [Primary Care Provider] - 3-5 Days Prescriptions: Levofloxacin [Levaquin TAB] 500 mg PO QDAY #7 tablet
[2017-09-06] MEDS: ROCEPHIN/NS 1 GM/50 ML 1 GM/50 ML BAG IV SCH (09:46)
[2017-09-06] MEDS: LOVENOX SUB-Q SCH (11:09)
[2017-09-06] MEDS: SODIUM CHLORIDE FLUSH SYRINGE 10 ML IV SCH (11:09)
[2017-09-06 12:00] VITALS: BP 127/92
== END 2017-09-06 13:19 | disposition home or self-care (01) | DRG 872 ==
LOC: ED → 3A 05:50
PROVIDERS: ADMIT Internal Medicine; ATTEND Internal Medicine
DX: A41.9 Sepsis, unspecified organism (principal); N39.0 Urinary tract infection, site not specified; G82.20 Paraplegia, unspecified; Z82.49 Family history of ischemic heart disease and other diseases of the circulatory system; L89.620 Pressure ulcer of left heel, unstageable
CPT/HCPCS: 36415; 71045; 80048; 80053; 81001; 82140; 82805; 85025; 85379; 85610; 87040; 87086; 93005; 93010; 96361; 96374; 96375; J0696; J1650; J2270; J2405; J2543; J7030; J7040

== ENCOUNTER 2018-04-24 17:21 | Inpatient (IN) | payer MEDICAID ==
[2018-04-24] MEDS ORDERED: NACL 0.9% 1000 ML IV ONE (17:39)
[2018-04-24] MEDS ORDERED: ZOFRAN IV ONE (17:42)
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
[2018-04-24 18:36] LABS: Hematocrit 46.2 % (35.5-45.6); Hemoglobin 14.9 gm/dl (11.8-15.2); Mean Corpuscular HGB Conc 32 % (32-34); Mean Corpuscular Volume 88 fl (84-94); Platelet Count 250 K/mm3 (140-440); Red Blood Count 5.24 M/mm3 (3.65-5.03); Red Cell Distribution Width 16.1 % (13.2-15.2)
[2018-04-24] MEDS ORDERED: TYLENOL PO ONE (18:38)
[2018-04-24 18:48] LABS: INR 1.03 (0.87-1.13); Partial Thromboplastin Time 21.1 Sec. (24.2-36.6)
[2018-04-24 19:07] LABS: Alanine Aminotransferase 7 units/L (7-56); Albumin 4.3 g/dL (3.9-5); BUN/Creatinine Ratio 15; Blood Urea Nitrogen 15 mg/dL (9-20); Calcium 8.9 mg/dL (8.4-10.2); Hemolysis Index 5
[2018-04-24] MEDS: MAXIPIME/NS 2 GM/100 ML 2 GM/100 ML BAG IV SCH ×2 (19:32→20:15)
--- NOTE | 2018-04-24 19:32 | XRay Report ---
FINAL REPORT PROCEDURE: XR CHEST 1V AP TECHNIQUE: Chest radiograph anteroposterior view. CPT 85297 HISTORY: n/v fever COMPARISON: 02/05/2018 FINDINGS: The heart and mediastinum are shifted to the right. Lungs/Pleural space: There has been partial right-sided pneumonectomy, with some aerated lung seen in the right lateral jessica thorax. The left lung is well aerated. No left pleural effusion or pneumothor ax. Bony thorax: No acute osseous abnormality. Life support devices: None. IMPRESSION: Right postsurgical changes. No left lung infiltrates are seen.
[2018-04-24 19:43] LABS: Basophils % (Manual) 0 % (0.0-1.8); Eosinophils % (Manual) 0 % (0.0-4.3); Total Cells Counted 100
[2018-04-24 19:44] LABS: Large Platelets 1+; Platelet Estimate Consistent w Auto; RBC Morphology Normal; Toxic Granulation 1+
--- NOTE | 2018-04-24 19:52 | Cat Scan Report ---
FINAL REPORT EXAM: CT ABDOMEN PELVIS WO CON HISTORY: n/v sepsis suprapubic norman TECHNIQUE: CT of the abdomen and pelvis without contrast PRIORS: None. FINDINGS: There elevation of the right hemidiaphragm with right mediastinal shift in volume loss. There is a hi story of prior partial right pneumonectomy. On noncontrast exam no abnormality seen in the visualized portion of the liver parenchyma. Spleen is normal in size and nonenhanced appearance. No peripancreatic inflammatory changes are observed. There is a right renal staghorn calculus. There is moderate left hydronephrosis. There is bladder wal l thickening with a suprapubic catheter present. There is increased amount of stool within the distal colon. No free-fluid or free air identified. The abdominal aorta is normal in caliber. No evidence for small bowel distention. IMPRESSION: Status post right pneumonectomy with shift of cardiomediastinal toward the right. Right renal staghorn calculus Bilateral hydronephrosis. Bladder wall thickening suprapubic catheter present Increased amount of stool within the distal colon
[2018-04-24] MEDS ORDERED: NACL 0.9% 1000 ML 2,000 ML IV ONE (19:58)
[2018-04-24] MEDS ORDERED: SUBLIMAZE ONE (20:02)
[2018-04-24] MEDS ORDERED: SUBLIMAZE IV ONE (20:16)
[2018-04-24 21:01] LABS: Bacteria,Urine 1+ /HPF (Negative); Bilirubin,Urine NEG (Negative); Blood,Urine MOD (Negative); Color,Urine Yellow (Yellow); Mucus,Urine 1+ /HPF; Triple Phosphate Crystal,Urine 3+; Urobilinogen,Urine < 2.0 mg/dL (<2.0)
[2018-04-24 21:02] LABS: RBC,Urine > 182.0 /HPF (0.0-6.0); WBC,Urine > 182.0 /HPF (0.0-6.0)
--- NOTE | 2018-04-24 23:24 | History and Physical Report ---
History of Present Illness Date of examination: 04/24/18 History of present illness: 33 year old man, paraplegic, was sent to the ER for evaluation of nausea, vomiting, fever, chills and small amount of blood in urine. His symptoms started yesterday Review of systems Constitutional: no weight loss, +chills, +fever Ears, eyes, nose, mouth and throat: no nasal congestion, no nasal discharge, no sinus pressure, no vision change, no red eye. Neck: No neck pain or rigidity. Cardiovascular: no chest pain, palpitations Respiratory: no cough, shortness of breath Gastrointestinal: no abdominal pain hematochezia Genitourinary : no frequency , no hematuria Musculoskeletal: no joint swelling or muscle ache Integumentary: no rash, no pruritis Neurological: no parathesias, no numbness, no focal weakness Endocrine: no cold or heat intolerance, no polyuria or polydipsia Hematologic/Lymphatic: no easy bruising, no easy bleeding, no gland swelling Allergic/Immunologic: no urticaria, no angioedema. PAST MEDICAL HISTORY: Paraplegic PAST SURGICAL HISTORY: Right pneumonectomy, neck surgery SOCIAL HISTORY: No alcohol, no drugs, tobacco FAMILY HISTORY: Hypertension Medications and Allergies Allergies Allergy/AdvReac Type Severity Reaction Status Date / Time No Known Allergies Allergy Verified 09/04/17 00:14 Home Medications Medication Instructions Recorded Confirmed Last Taken Type No Known Home Medications [No 04/24/18 04/24/18 Unknown History Reported Home Medications] Active Meds: Active Medications Cefepime HCl (Maxipime/Ns 2 Gm/100 Ml) 2 gm in 100 mls @ 200 mls/hr IV Q12HR [facility]; Protocol Last Admin: 04/24/18 20:15 Dose: 200 mls/hr Documented by: Exam - Physical Exam Narrative exam: Gen. appearance: Patient lying in bed, no apparent distress HEENT: Normocephalic, atraumatic, pupils equally round and reactive to light, eyes are , extraocular movement intact, and no sclericterus,. No JVD or thyromegaly or nodule,neck supple, no carotid bruit ,mucous membranes dry, no exudate or erythema Heart: S1, S2, regular rate and rhythm Lungs: Clear bilaterally, breathing comfortable Abdomen: Positive bowel sounds, non-tender, nondistended, no organomegaly Extremity:no edema cyanosis, clubbing Skin: no rash, dry,warm, LE wound Neuro: Oriented 3, paraplegic - Constitutional Vitals: Temp Pulse Resp BP Pulse Ox 101.4 F H 80 20 79/45 97 04/24/18 18:00 04/24/18 23:00 04/24/18 23:00 04/24/18 23:00 04/24/18 23:00 Results - Labs CBC & Chem 7: 04/27/18 05:17 04/26/18 16:39 Labs: Abnormal lab results 04/24/18 04/24/18 04/24/18 Range/Units 18:13 18:13 18:13 WBC 19.9 H (4.5-11.0) K/mm3 RBC 5.24 H (3.65-5.03) M/mm3 Hct 46.2 H (35.5-45.6) % RDW 16.1 H (13.2-15.2) % Seg Neuts % (Manual) 96.0 H (40.0-70.0) % Lymphocytes % (Manual) 3.0 L (13.4-35.0) % Seg Neutrophils # Man 19.1 H (1.8-7.7) K/mm3 Lymphocytes # (Manual) 0.6 L (1.2-5.4) K/mm3 APTT (24.2-36.6) Sec. Sodium 146 H (137-145) mmol/L Carbon Dioxide 20 L (22-30) mmol/L Lactic Acid 7.20 H* (0.7-2.0) mmol/L Total Protein 8.4 H (6.3-8.2) g/dL Urine WBC (Auto) (0.0-6.0) /HPF 04/24/18 04/24/18 04/24/18 Range/Units 18:13 19:44 20:13 WBC (4.5-11.0) K/mm3 RBC (3.65-5.03) M/mm3 Hct (35.5-45.6) % RDW (13.2-15.2) % Seg Neuts % (Manual) (40.0-70.0) % Lymphocytes % (Manual) (13.4-35.0) % Seg Neutrophils # Man (1.8-7.7) K/mm3 Lymphocytes # (Manual) (1.2-5.4) K/mm3 APTT 21.1 L (24.2-36.6) Sec. Sodium (137-145) mmol/L Carbon Dioxide (22-30) mmol/L Lactic Acid 2.10 H* (0.7-2.0) mmol/L Total Protein (6.3-8.2) g/dL Urine WBC (Auto) > 182.0 H (0.0-6.0) /HPF 04/24/18 Range/Units 20:39 WBC (4.5-11.0) K/mm3 RBC (3.65-5.03) M/mm3 Hct (35.5-45.6) % RDW (13.2-15.2) % Seg Neuts % (Manual) (40.0-70.0) % Lymphocytes % (Manual) (13.4-35.0) % Seg Neutrophils # Man (1.8-7.7) K/mm3 Lymphocytes # (Manual) (1.2-5.4) K/mm3 APTT (24.2-36.6) Sec. Sodium (137-145) mmol/L Carbon Dioxide (22-30) mmol/L Lactic Acid 2.20 H* (0.7-2.0) mmol/L Total Protein (6.3-8.2) g/dL Urine WBC (Auto) (0.0-6.0) /HPF - Imaging and Cardiology CT scan - abdomen: report reviewed CT scan - pelvis: report reviewed Assessment and Plan Assessment Sepsis Urinary Tract Infection Renal Stone/bilateral hydronephrosis Paraplegic Lower extremity wound Plan Admit to medicine Give fluid, IV cefepime, follow cultures Urology was consulted to see the patient Wound care, DVT prophalaxis
[2018-04-24] MEDS ORDERED: SODIUM CHLORIDE FLUSH SYRINGE 10 ML IV PRN (23:26)
[2018-04-24] MEDS ORDERED: ZOFRAN IV PRN (23:26)
[2018-04-25] MEDS: NACL 0.9% 1000 ML 1,000 ML IV SCH (03:43)
[2018-04-25] MEDS: TYLENOL PO PRN ×3 (03:44→23:17)
[2018-04-25 05:31] LABS: Hematocrit 37.1 % (35.5-45.6); Hemoglobin 11.9 gm/dl (11.8-15.2); Mean Corpuscular HGB Conc 32 % (32-34); Mean Corpuscular Volume 88 fl (84-94); Platelet Count 168 K/mm3 (140-440); Red Blood Count 4.22 M/mm3 (3.65-5.03); Red Cell Distribution Width 16.4 % (13.2-15.2)
[2018-04-25 05:54] LABS: BUN/Creatinine Ratio 19; Blood Urea Nitrogen 13 mg/dL (9-20); Calcium 7.9 mg/dL (8.4-10.2); Hemolysis Index 15
[2018-04-25 06:21] LABS: Band Neutrophils # (Manual) 1.2 K/mm3; Basophils % (Manual) 0 % (0.0-1.8); Eosinophils % (Manual) 0 % (0.0-4.3); Monocytes % (Manual) 0 % (0.0-7.3); Ovalocytes 1+; Total Cells Counted 100
[2018-04-25] MEDS ORDERED: LOVENOX SUB-Q SCH (10:00)
[2018-04-25] MEDS: MAXIPIME/NS 2 GM/100 ML 2 GM/100 ML BAG IV SCH ×2 (10:05→22:23)
[2018-04-25] MEDS: LOVENOX SUB-Q SCH (10:08)
[2018-04-25] MEDS: SODIUM CHLORIDE FLUSH SYRINGE 10 ML IV SCH ×2 (10:09→22:23)
--- NOTE | 2018-04-25 11:49 | Progress Note ---
Assessment and Plan Sepsis with UTI Urinary Tract Infection Renal staghorn Stone with bilateral hydronephrosis Paraplegic with suprapubic catheter Lower extremity chronic wound - monitor at medicine - cont iv fluid, IV cefepime, follow cultures - Urology was consulted to see the patient - will follow recommendation - Wound care, DVT prophalaxis Brief History: 35 year old man, paraplegic, was sent to the ER for evaluation of nausea, vomiting, fever, chills and small amount of blood in urine. His symptoms started yesterday. Radiological data: Ct abdoemn/pelvis: Status post right pneumonectomy with shift of cardiomediastinal toward the right. Right renal staghorn calculus Bilateral hydronephrosis. Bladder wall thickening suprapubic catheter present Increased amount of stool within the distal colon. Subjective Date of service: 04/25/18 Interval history: pt seen and examined denies any chest pain or abdominal pain tolerating diet Objective - Constitutional Vitals: Vital Signs - 12hr 04/25/18 04/25/18 04/25/18 00:00 00:09 00:15 Temperature Pulse Rate 75 81 81 Respiratory 19 20 Rate Blood Pressure Blood Pressure [Left] O2 Sat by Pulse Oximetry 04/25/18 04/25/18 04/25/18 00:30 00:45 01:00 Temperature Pulse Rate 83 73 68 Respiratory 17 20 21 Rate Blood Pressure Blood Pressure [Left] O2 Sat by Pulse Oximetry 04/25/18 04/25/18 04/25/18 01:15 01:31 01:45 Temperature Pulse Rate 75 68 70 Respiratory 19 20 19 Rate Blood Pressure Blood Pressure [Left] O2 Sat by Pulse Oximetry 04/25/18 04/25/18 04/25/18 02:00 02:08 02:11 Temperature Pulse Rate 74 71 76 Respiratory 19 18 18 Rate Blood Pressure 93/62 Blood Pressure 93/62 [Left] O2 Sat by Pulse 97 Oximetry 04/25/18 04/25/18 04/25/18 02:21 02:30 02:45 Temperature Pulse Rate 67 66 79 Respiratory 23 24 16 Rate Blood Pressure 105/68 102/75 92/48 Blood Pressure [Left] O2 Sat by Pulse Oximetry 04/25/18 04/25/18 04/25/18 02:51 03:14 06:03 Temperature 100.1 F H 99.8 F H Pulse Rate 76 80 81 Respiratory 17 16 18 Rate Blood Pressure 106/61 95/54 106/71 Blood Pressure [Left] O2 Sat by Pulse 96 96 Oximetry 04/25/18 11:42 Temperature 101.0 F H Pulse Rate 95 H Respiratory 18 Rate Blood Pressure 112/75 Blood Pressure [Left] O2 Sat by Pulse 95 Oximetry General appearance: Present: no acute distress - EENT Eyes: PERRL, EOM intact ENT: hearing intact, clear oral mucosa Ears: bilateral: normal - Neck Neck: supple, normal ROM - Respiratory Respiratory effort: normal Respiratory: bilateral: CTA - Cardiovascular Rhythm: regular Heart Sounds: Present: S1 & S2. Absent: gallop, rub Extremities: pulses intact, No edema, normal color, Full ROM - Gastrointestinal General gastrointestinal: Present: soft, non-tender, non-distended, normal bowel sounds, other (suprapubic catheter on place) - Integumentary Integumentary: clear, warm, dry - Musculoskeletal Musculoskeletal: other (paraplegic) - Neurologic Neurologic: CNII-XII intact, no moves all extremities, no gait normal - Psychiatric Psychiatric: memory intact, appropriate mood/affect, intact judgment & insight - Labs CBC & Chem 7: 04/25/18 05:03 04/25/18 05:03 Labs: Abnormal lab results 04/24/18 04/24/18 04/24/18 Range/Units 18:13 18:13 18:13 WBC 19.9 H (4.5-11.0) K/mm3 RBC 5.24 H (3.65-5.03) M/mm3 Hct 46.2 H (35.5-45.6) % RDW 16.1 H (13.2-15.2) % Seg Neuts % (Manual) 96.0 H (40.0-70.0) % Lymphocytes % (Manual) 3.0 L (13.4-35.0) % Seg Neutrophils # Man 19.1 H (1.8-7.7) K/mm3 Lymphocytes # (Manual) 0.6 L (1.2-5.4) K/mm3 APTT (24.2-36.6) Sec. Sodium 146 H (137-145) mmol/L Chloride (98-107) mmol/L Carbon Dioxide 20 L (22-30) mmol/L Creatinine (0.8-1.5) mg/dL Lactic Acid 7.20 H* (0.7-2.0) mmol/L Calcium (8.4-10.2) mg/dL Total Protein 8.4 H (6.3-8.2) g/dL Urine WBC (Auto) (0.0-6.0) /HPF 04/24/18 04/24/18 04/24/18 Range/Units 18:13 19:44 20:13 WBC (4.5-11.0) K/mm3 RBC (3.65-5.03) M/mm3 Hct (35.5-45.6) % RDW (13.2-15.2) % Seg Neuts % (Manual) (40.0-70.0) % Lymphocytes % (Manual) (13.4-35.0) % Seg Neutrophils # Man (1.8-7.7) K/mm3 Lymphocytes # (Manual) (1.2-5.4) K/mm3 APTT 21.1 L (24.2-36.6) Sec. Sodium (137-145) mmol/L Chloride (98-107) mmol/L Carbon Dioxide (22-30) mmol/L Creatinine (0.8-1.5) mg/dL Lactic Acid 2.10 H* (0.7-2.0) mmol/L Calcium (8.4-10.2) mg/dL Total Protein (6.3-8.2) g/dL Urine WBC (Auto) > 182.0 H (0.0-6.0) /HPF 04/24/18 04/25/18 04/25/18 Range/Units 20:39 05:03 05:03 WBC 23.0 H (4.5-11.0) K/mm3 RBC (3.65-5.03) M/mm3 Hct (35.5-45.6) % RDW 16.4 H (13.2-15.2) % Seg Neuts % (Manual) 95.0 H (40.0-70.0) % Lymphocytes % (Manual) 0 L (13.4-35.0) % Seg Neutrophils # Man 21.9 H (1.8-7.7) K/mm3 Lymphocytes # (Manual) 0.0 L (1.2-5.4) K/mm3 APTT (24.2-36.6) Sec. Sodium (137-145) mmol/L Chloride 112.4 H (98-107) mmol/L Carbon Dioxide 19 L (22-30) mmol/L Creatinine 0.7 L (0.8-1.5) mg/dL Lactic Acid 2.20 H* (0.7-2.0) mmol/L Calcium 7.9 L (8.4-10.2) mg/dL Total Protein (6.3-8.2) g/dL Urine WBC (Auto) (0.0-6.0) /HPF - Imaging and cardiology CT scan - abdomen: report reviewed
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
--- NOTE | 2018-04-25 18:02 | Cat Scan Report ---
FINAL REPORT EXAM: CT CHEST WO CON HISTORY: sob TECHNIQUE: CT chest without contrast PRIORS: Correlation made with prior exam May 04, 2016 FINDINGS: Again identified is right partial pneumonectomy. Within the remaining lung tissue on the right there is confluent and linear increased opacity degree of aeration somewhat improved since the previous pio dy. There is shift of heart and mediastinal contents to the right non noncontrast CT. There is fluid or m ucous plugging seen within the right main bronchus. The left lung is hyperinflated. No acute left pulmonary infiltrate identified. There is some mild wicho ear scarring at the left lung base. There is staghorn calculus in the visualized portion of the right kidney with hydronephrosis. IMPRESSION: Right partial pneumonectomy. There is some opacity within the remaining a long tissue on the right. T his may reflect residual scarring/atelectasis superimposed infiltrate cannot be excluded. fluid or mucous plugging demonstrated within the right main bronchus Right renal staghorn calculus again noted.
[2018-04-25] MEDS: PERCOCET 5/325 PO PRN (18:27)
[2018-04-26] MEDS: MAXIPIME/NS 2 GM/100 ML 2 GM/100 ML BAG IV SCH ×2 (10:49→22:27)
[2018-04-26] MEDS: SODIUM CHLORIDE FLUSH SYRINGE 10 ML IV SCH ×2 (10:51→22:31)
[2018-04-26] MEDS: LOVENOX SUB-Q SCH (10:53)
--- NOTE | 2018-04-26 13:23 | Progress Note ---
Assessment and Plan Sepsis with UTI Urinary Tract Infection Renal staghorn Stone with bilateral hydronephrosis Paraplegic with suprapubic catheter Lower extremity chronic wound - monitor at medicine - cont iv fluid, IV cefepime, follow cultures - Urology was consulted to see the patient - recommended IR for PNN - vascular evaluated the patient and recommended medical mx for now and against PCN, will need tertiary center f/u outpt as he is clinically improving - Wound care, ID consult as spiking fever - DVT prophalaxis Brief History: 35 year old man, paraplegic, was sent to the ER for evaluation of nausea, vomiting, fever, chills and small amount of blood in urine. His symptoms started yesterday. Radiological data: Ct abdoemn/pelvis: Status post right pneumonectomy with shift of cardiomediastin al toward the right. Right renal staghorn calculus Bilateral hydronephrosis. Bladder wall thickening suprapubic catheter present Increased amount of stool within the distal colon. Physical exam: General appearance: Present: no acute distress - EENT Eyes: PERRL, EOM intact ENT: hearing intact, clear oral mucosa Ears: bilateral: normal - Neck Neck: supple, normal ROM - Respiratory Respiratory effort: normal Respiratory: bilateral: CTA - Cardiovascular Rhythm: regular Heart Sounds: Present: S1 & S2. Absent: gallop, rub Extremities: pulses intact, No edema, normal color, Full ROM - Gastrointestinal General gastrointestinal: Present: soft, non-tender, non-distended, normal bowel sounds, other (suprapubic catheter on place) - Integumentary Integumentary: clear, warm, dry - Musculoskeletal Musculoskeletal: other (paraplegic) - Neurologic Neurologic: CNII-XII intact, no moves all extremities, no gait normal - Psychiatric Psychiatric: memory intact, appropriate mood/affect, intact judgment & insight Subjective Date of service: 04/26/18 Interval history: pt seen and examined denies any chest pain or abdominal pain tolerating diet spiked fever this afternoon Objective - Exam Narrative Exam: General appearance: Present: no acute distress - EENT Eyes: PERRL, EOM intact ENT: hearing intact, clear oral mucosa Ears: bilateral: normal - Neck Neck: supple, normal ROM - Respiratory Respiratory effort: normal Respiratory: bilateral: CTA - Cardiovascular Rhythm: regular Heart Sounds: Present: S1 & S2. Absent: gallop, rub Extremities: pulses intact, No edema, normal color, Full ROM - Gastrointestinal General gastrointestinal: Present: soft, non-tender, non-distended, normal bowel sounds, other (suprapubic catheter on place) - Integumentary Integumentary: clear, warm, dry - Musculoskeletal Musculoskeletal: other (paraplegic) - Neurologic Neurologic: CNII-XII intact, no moves all extremities, no gait normal - Psychiatric Psychiatric: memory intact, appropriate mood/affect, intact judgment & insight - Constitutional Vitals: Vital Signs - 12hr 04/26/18 04/26/18 04/26/18 05:07 06:16 10:00 Temperature 98.3 F Pulse Rate 68 70 Respiratory 16 18 Rate Blood Pressure 151/110 129/88 O2 Sat by Pulse 98 97 96 Oximetry 04/26/18 12:28 Temperature 99.7 F H Pulse Rate 88 Respiratory 18 Rate Blood Pressure 148/95 O2 Sat by Pulse 96 Oximetry - Labs CBC & Chem 7: 04/27/18 05:17 04/26/18 16:39
[2018-04-26] MEDS: TYLENOL PO PRN (17:52)
[2018-04-26] MEDS: PERCOCET 5/325 PO PRN ×2 (17:52→22:27)
[2018-04-26 17:55] LABS: Hematocrit 37.8 % (35.5-45.6); Hemoglobin 12.4 gm/dl (11.8-15.2); Mean Corpuscular HGB Conc 33 % (32-34); Mean Corpuscular Volume 86 fl (84-94); Platelet Count 182 K/mm3 (140-440); Red Blood Count 4.38 M/mm3 (3.65-5.03); Red Cell Distribution Width 16.3 % (13.2-15.2)
[2018-04-26 18:12] LABS: BUN/Creatinine Ratio 18; Blood Urea Nitrogen 11 mg/dL (9-20); Calcium 8.2 mg/dL (8.4-10.2); Hemolysis Index 85
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
[2018-04-26] MEDS ORDERED: VANCOMYCIN/NS 1 GM/250 ML 1 GM/250 ML BAG IV ONE (20:00)
[2018-04-26 20:54] LABS: Basophils % (Manual) 0 % (0.0-1.8); Platelet Estimate Consistent w Auto; RBC Morphology Normal; Total Cells Counted 100
[2018-04-27] MEDS: NACL 0.9% 1000 ML 1,000 ML IV SCH ×3 (05:12→15:41)
[2018-04-27 06:32] LABS: Basophils # (Auto) 0.1 K/mm3 (0.0-0.1); Basophils % (Auto) 0.6 % (0.0-1.8); Eosinophils # (Auto) 0.1 K/mm3 (0.0-0.4); Eosinophils % (Auto) 0.5 % (0.0-4.3); Hematocrit 33.8 % (35.5-45.6); Hemoglobin 11.4 gm/dl (11.8-15.2); Lymphocytes # (Auto) 0.7 K/mm3 (1.2-5.4); Lymphocytes % (Auto) 6.6 % (13.4-35.0); Mean Corpuscular HGB Conc 34 % (32-34); Mean Corpuscular Volume 85 fl (84-94); Monocytes # (Auto) 0.9 K/mm3 (0.0-0.8); Monocytes % (Auto) 8.1 % (0.0-7.3); Platelet Count 169 K/mm3 (140-440); Red Blood Count 3.96 M/mm3 (3.65-5.03); Red Cell Distribution Width 16.2 % (13.2-15.2)
[2018-04-27] MEDS: VANCOMYCIN 750 MG in NACL 0.9% 250ML 250 ML IV SCH ×2 (07:50→14:30)
[2018-04-27] MEDS: MAXIPIME/NS 2 GM/100 ML 2 GM/100 ML BAG IV SCH ×2 (11:30→22:10)
[2018-04-27] MEDS: LOVENOX SUB-Q SCH (11:32)
--- NOTE | 2018-04-27 12:38 | Progress Note ---
Assessment and Plan Sepsis with UTI Urinary Tract Infection Renal staghorn Stone with bilateral hydronephrosis Paraplegic with suprapubic catheter Lower extremity chronic wound - monitor at medicine - cont iv fluid, IV cefepime, follow cultures - Urology was consulted to see the patient - recommended IR for PNN - vascular evaluated the patient and recommended medical mx for now and against PCN, will need tertiary center f/u outpt as he is clinically improving - Wound care, ID consult as spiking fever - DVT prophalaxis Brief History: 35 year old man, paraplegic, was sent to the ER for evaluation of nausea, vomiting, fever, chills and small amount of blood in urine. His symptoms started yesterday. Radiological data: Ct abdoemn/pelvis: Status post right pneumonectomy with shift of cardiomediastin al toward the right. Right renal staghorn calculus Bilateral hydronephrosis. Bladder wall thickening suprapubic catheter present Increased amount of stool within the distal colon. Physical exam: General appearance: Present: no acute distress - EENT Eyes: PERRL, EOM intact ENT: hearing intact, clear oral mucosa Ears: bilateral: normal - Neck Neck: supple, normal ROM - Respiratory Respiratory effort: normal Respiratory: bilateral: CTA - Cardiovascular Rhythm: regular Heart Sounds: Present: S1 & S2. Absent: gallop, rub Extremities: pulses intact, No edema, normal color, Full ROM - Gastrointestinal General gastrointestinal: Present: soft, non-tender, non-distended, normal bowel sounds, other (suprapubic catheter on place) - Integumentary Integumentary: clear, warm, dry - Musculoskeletal Musculoskeletal: other (paraplegic) - Neurologic Neurologic: CNII-XII intact, no moves all extremities, no gait normal - Psychiatric Psychiatric: memory intact, appropriate mood/affect, intact judgment & insight Subjective Date of service: 04/27/18 Interval history: pt seen and examined denies any chest pain or abdominal pain tolerating diet cont to spike fever Objective - Constitutional Vitals: Vital Signs - 12hr 04/27/18 04/27/18 04/27/18 04:29 06:21 12:12 Temperature 101.5 F H 99.7 F H Pulse Rate 71 67 Pulse Rate [ 81 Apical] Respiratory 20 18 Rate Blood Pressure 141/105 142/109 O2 Sat by Pulse 96 98 Oximetry - Labs CBC & Chem 7: 04/27/18 05:17 04/26/18 16:39 Labs: Abnormal lab results 04/26/18 04/26/18 04/27/18 Range/Units 16:39 16:39 05:17 WBC 12.2 H (4.5-11.0) K/mm3 Hgb 11.4 L (11.8-15.2) gm/dl Hct 33.8 L (35.5-45.6) % RDW 16.3 H 16.2 H (13.2-15.2) % Lymph % (Auto) 6.6 L (13.4-35.0) % [place] % (Auto) 8.1 H (0.0-7.3) % Lymph # 0.7 L (1.2-5.4) K/mm3 [place] # 0.9 H (0.0-0.8) K/mm3 Seg Neutrophils % 84.2 H (40.0-70.0) % Seg Neuts % (Manual) 89.0 H (40.0-70.0) % Lymphocytes % (Manual) 6.0 L (13.4-35.0) % Seg Neutrophils # 9.0 H (1.8-7.7) K/mm3 Seg Neutrophils # Man 10.9 H (1.8-7.7) K/mm3 Lymphocytes # (Manual) 0.7 L (1.2-5.4) K/mm3 Sodium 135 L D (137-145) mmol/L Creatinine 0.6 L (0.8-1.5) mg/dL Calcium 8.2 L (8.4-10.2) mg/dL
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
[2018-04-27] MEDS: SODIUM CHLORIDE FLUSH SYRINGE 10 ML IV SCH (18:30)
[2018-04-28] MEDS: NACL 0.9% 1000 ML 1,000 ML IV SCH ×2 (02:16→09:14)
[2018-04-28] MEDS: PERCOCET 5/325 PO PRN (02:22)
[2018-04-28] MEDS: SODIUM CHLORIDE FLUSH SYRINGE 10 ML IV SCH ×3 (08:22→21:56)
[2018-04-28] MEDS: MAXIPIME/NS 2 GM/100 ML 2 GM/100 ML BAG IV SCH ×2 (09:13→21:19)
[2018-04-28] MEDS: LOVENOX SUB-Q SCH (09:15)
--- NOTE | 2018-04-28 13:05 | Progress Note ---
Assessment and Plan Sepsis with UTI Urinary Tract Infection Renal staghorn Stone with bilateral hydronephrosis Paraplegic with suprapubic catheter Lower extremity chronic wound h/o right pneumonectomy with mucous plugging in right bronchus Constipation, chronic - monitor at medicine - cont iv fluid, IV cefepime, follow cultures - Urology was consulted to see the patient - recommended IR for PCN - vascular evaluated the patient and recommended medical mx for now and against PCN, will need tertiary center f/u outpt as he is clinically improving - Cont Wound care, ID consult for persistent fever - need IV abx on discharge - consult pulmonary for mucous plugging, add stool softener - DVT prophalaxis Brief History: 35 year old man, paraplegic, was sent to the ER for evaluation of nausea, vomiting, fever, chills and small amount of blood in urine. His symptoms started yesterday. Radiological data: Ct abdoemn/pelvis: Status post right pneumonectomy with shift of cardiomediastinal toward the right. Right renal staghorn calculus Bilateral hydronephrosis. Bladder wall thickening suprapubic catheter present Increased amount of stool within the distal colon. Physical exam: General appearance: Present: no acute distress - EENT Eyes: PERRL, EOM intact ENT: hearing intact, clear oral mucosa Ears: bilateral: normal - Neck Neck: supple, normal ROM - Respiratory Respiratory effort: normal Respiratory: bilateral: CTA - Cardiovascular Rhythm: regular Heart Sounds: Present: S1 & S2. Absent: gallop, rub Extremities: pulses intact, No edema, normal color, Full ROM - Gastrointestinal General gastrointestinal: Present: soft, non-tender, non-distended, normal bowel sounds, other (suprapubic catheter on place) - Integumentary Integumentary: clear, warm, dry - Musculoskeletal Musculoskeletal: other (paraplegic) - Neurologic Neurologic: CNII-XII intact, no moves all extremities, no gait normal - Psychiatric Psychiatric: memory intact, appropriate mood/affect, intact judgment & insight Subjective Date of service: 04/28/18 Interval history: pt seen and examined denies any chest pain or abdominal pain tolerating diet cont to spike fever Objective - Constitutional Vitals: Vital Signs - 12hr 04/28/18 04:20 Temperature 97.9 F Pulse Rate 72 Respiratory 24 Rate Blood Pressure 142/105 O2 Sat by Pulse 95 Oximetry - Labs CBC & Chem 7: 02/22/19 05:17 04/26/18 16:39
--- NOTE | 2018-04-28 15:52 | Consultation ---
History of Present Illness Consult date: 04/28/18 Requesting physician: JERZY GUTIERREZ Reason for consult: other (Mucus Plugging) History of present illness: PULMONARY/CCM CONSULT NOTE - chronic looking findings and patient stable; will evaluate in am Medications and Allergies Allergies Allergy/AdvReac Type Severity Reaction Status Date / Time No Known Allergies Allergy Verified 09/04/17 00:14 Home Medications Medication Instructions Recorded Confirmed Last Taken Type No Known Home Medications [No 04/24/18 04/24/18 Unknown History Reported Home Medications] Active Meds: Active Medications Acetaminophen (Tylenol) 650 mg PO Q4H PRN PRN Reason: Pain MILD(1-3)/Fever >100.5/WILEY Last Admin: 04/26/18 17:52 Dose: 325 mg Documented by: Enoxaparin Sodium (Lovenox) 40 mg SUB-Q QDAY@1000 FRANC Last Admin: 04/28/18 09:15 Dose: Not Given Documented by: Cefepime HCl (Maxipime/Ns 2 Gm/100 Ml) 2 gm in 100 mls @ 200 mls/hr IV Q12HR FRANC; Protocol Last Admin: 04/28/18 09:13 Dose: 200 mls/hr Documented by: Sodium Chloride (Nacl 0.9% 1000 Ml) 1,000 mls @ 125 mls/hr IV DIRECT FRANC Last Admin: 04/28/18 09:14 Dose: 125 mls/hr Documented by: Ondansetron HCl (Zofran) 4 mg IV Q8H PRN PRN Reason: Nausea And Vomiting Oxycodone/Acetaminophen (Percocet 5/325) 1 tab PO Q6H PRN PRN Reason: Pain, Moderate (4-6) Last Admin: 04/28/18 02:22 Dose: 1 tab Documented by: Sodium Chloride (Sodium Chloride Flush Syringe 10 Ml) 10 ml IV BID FRANC Last Admin: 04/28/18 14:08 Dose: 10 ml Documented by: Sodium Chloride (Sodium Chloride Flush Syringe 10 Ml) 10 ml IV PRN PRN PRN Reason: LINE FLUSH Physical Examination Vital signs: Vital Signs Temp Pulse Resp Pulse Ox 99.7 F H 105 H 16 94 04/24/18 17:29 04/24/18 17:29 04/24/18 17:29 04/24/18 17:29 Results - Laboratory Findings CBC and BMP: 02/22/19 05:17 04/26/18 16:39 PT/INR, D-dimer PT 14.1 Sec. (12.2-14.9) 04/24/18 18:13 INR 1.03 (0.87-1.13) 04/24/18 18:13 Abnormal lab findings: Abnormal Labs 04/24/18 04/24/18 04/24/18 18:13 18:13 18:13 WBC 19.9 H RBC 5.24 H Hgb Hct 46.2 H RDW 16.1 H Lymph % (Auto) [place] % (Auto) Lymph # [place] # Seg Neutrophils % Seg Neuts % (Manual) 96.0 H Lymphocytes % (Manual) 3.0 L Seg Neutrophils # Seg Neutrophils # Man 19.1 H Lymphocytes # (Manual) 0.6 L APTT Sodium 146 H Chloride Carbon Dioxide 20 L Creatinine Lactic Acid 7.20 H* Calcium Total Protein 8.4 H Urine WBC (Auto) 04/24/18 04/24/18 04/24/18 18:13 19:44 20:13 WBC RBC Hgb Hct RDW Lymph % (Auto) [place] % (Auto) Lymph # [place] # Seg Neutrophils % Seg Neuts % (Manual) Lymphocytes % (Manual) Seg Neutrophils # Seg Neutrophils # Man Lymphocytes # (Manual) APTT 21.1 L Sodium Chloride Carbon Dioxide Creatinine Lactic Acid 2.10 H* Calcium Total Protein Urine WBC (Auto) > 182.0 H 04/24/18 04/25/18 04/25/18 20:39 05:03 05:03 WBC 23.0 H RBC Hgb Hct RDW 16.4 H Lymph % (Auto) [place] % (Auto) Lymph # [place] # Seg Neutrophils % Seg Neuts % (Manual) 95.0 H Lymphocytes % (Manual) 0 L Seg Neutrophils # Seg Neutrophils # Man 21.9 H Lymphocytes # (Manual) 0.0 L APTT Sodium Chloride 112.4 H Carbon Dioxide 19 L Creatinine 0.7 L Lactic Acid 2.20 H* Calcium 7.9 L Total Protein Urine WBC (Auto) 04/26/18 04/26/18 04/27/18 16:39 16:39 05:17 WBC 12.2 H RBC Hgb 11.4 L Hct 33.8 L RDW 16.3 H 16.2 H Lymph % (Auto) 6.6 L [place] % (Auto) 8.1 H Lymph # 0.7 L [place] # 0.9 H Seg Neutrophils % 84.2 H Seg Neuts % (Manual) 89.0 H Lymphocytes % (Manual) 6.0 L Seg Neutrophils # 9.0 H Seg Neutrophils # Man 10.9 H Lymphocytes # (Manual) 0.7 L APTT Sodium 135 L D Chloride Carbon Dioxide Creatinine 0.6 L Lactic Acid Calcium 8.2 L Total Protein Urine WBC (Auto)
--- NOTE | 2018-04-29 08:46 | Progress Note ---
Assessment and Plan no pain spt draining Subjective Date of service: 04/29/18 Principal diagnosis: stones Objective - Constitutional Vitals: Vital Signs - 12hr 04/28/18 04/29/18 23:13 05:42 Temperature 98.1 F 97.9 F Pulse Rate 76 Respiratory 18 18 Rate Blood Pressure 99/68 127/97 O2 Sat by Pulse 98 Oximetry General appearance: Present: no acute distress - Respiratory Respiratory effort: normal - Gastrointestinal General gastrointestinal: Present: non-tender - Labs CBC & Chem 7: 04/27/18 05:17 04/26/18 16:39 Medications & Allergies - Medications Allergies/Adverse Reactions: Allergies No Known Allergies Allergy (Verified 09/04/17 00:14) Home Medications: Home Medications Medication Instructions Recorded Confirmed Last Taken Type No Known Home Medications [No 04/24/18 04/24/18 Unknown History Reported Home Medications] Active Medications: Generic Name Dose Route Start Last Admin Trade Name Freq PRN Reason Stop Dose Admin Acetaminophen 650 mg 04/24/18 23:26 04/26/18 17:52 Tylenol PO 325 mg Q4H PRN Administration Pain MILD(1-3)/Fever >100.5/WILEY Enoxaparin Sodium 40 mg 04/25/18 10:00 04/28/18 09:15 Lovenox SUB-Q Not Given QDAY@1000 [facility] Cefepime HCl 2 gm in 100 mls @ 200 mls/hr 04/24/18 20:00 04/28/18 21:19 Maxipime/Ns 2 Gm/100 Ml IV 200 mls/hr Q12HR FRANC Administration Protocol Ondansetron HCl 4 mg 04/24/18 23:26 Zofran IV Q8H PRN Nausea And Vomiting Oxycodone/Acetaminophen 1 tab 04/24/18 23:26 04/28/18 02:22 Percocet 5/325 PO 1 tab Q6H PRN Administration Pain, Moderate (4-6) Sodium Chloride 10 ml 04/25/18 10:00 04/28/18 21:56 Sodium Chloride Flush Syringe 10 Ml IV 10 ml BID FRANC Administration Sodium Chloride 10 ml 04/24/18 23:26 Sodium Chloride Flush Syringe 10 Ml IV PRN PRN LINE FLUSH
[2018-04-29] MEDS ORDERED: MIRALAX 3350 PO PRN (08:53)
[2018-04-29] MEDS ORDERED: COLACE PO SCH (10:00)
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
[2018-04-29] MEDS: MAXIPIME/NS 2 GM/100 ML 2 GM/100 ML BAG IV SCH (10:47)
[2018-04-29] MEDS: SODIUM CHLORIDE FLUSH SYRINGE 10 ML IV SCH (10:47)
[2018-04-29] MEDS: LOVENOX SUB-Q SCH (10:53)
[2018-04-29 14:24] VITALS: BP 137/98
--- NOTE | 2018-04-29 15:56 | Progress Note ---
Subjective Date of service: 04/29/18 Principal diagnosis: stones Interval history: Patient is seen today for: Seen and examined at bedside; 24hour events reviewed; nursing and respiratory care staff consulted; no adverse overnight events reported to me; Objective Vital Signs - 12hr 04/29/18 04/29/18 05:42 11:22 Temperature 97.9 F 97.5 F L Respiratory 18 19 Rate Blood Pressure 127/97 137/98 CBC and BMP: 04/27/18 05:17 04/26/18 16:39 ABG, PT/INR, D-dimer: PT/INR, D-dimer PT 14.1 Sec. (12.2-14.9) 04/24/18 18:13 INR 1.03 (0.87-1.13) 04/24/18 18:13 Abnormal lab findings: Abnormal Labs 04/24/18 04/24/18 04/24/18 18:13 18:13 18:13 WBC 19.9 H RBC 5.24 H Hgb Hct 46.2 H RDW 16.1 H Lymph % (Auto) [place] % (Auto) Lymph # [place] # Seg Neutrophils % Seg Neuts % (Manual) 96.0 H Lymphocytes % (Manual) 3.0 L Seg Neutrophils # Seg Neutrophils # Man 19.1 H Lymphocytes # (Manual) 0.6 L APTT Sodium 146 H Chloride Carbon Dioxide 20 L Creatinine Lactic Acid 7.20 H* Calcium Total Protein 8.4 H Urine WBC (Auto) 04/24/18 04/24/18 04/24/18 18:13 19:44 20:13 WBC RBC Hgb Hct RDW Lymph % (Auto) [place] % (Auto) Lymph # [place] # Seg Neutrophils % Seg Neuts % (Manual) Lymphocytes % (Manual) Seg Neutrophils # Seg Neutrophils # Man Lymphocytes # (Manual) APTT 21.1 L Sodium Chloride Carbon Dioxide Creatinine Lactic Acid 2.10 H* Calcium Total Protein Urine WBC (Auto) > 182.0 H 04/24/18 04/25/18 04/25/18 20:39 05:03 05:03 WBC 23.0 H RBC Hgb Hct RDW 16.4 H Lymph % (Auto) [place] % (Auto) Lymph # [place] # Seg Neutrophils % Seg Neuts % (Manual) 95.0 H Lymphocytes % (Manual) 0 L Seg Neutrophils # Seg Neutrophils # Man 21.9 H Lymphocytes # (Manual) 0.0 L APTT Sodium Chloride 112.4 H Carbon Dioxide 19 L Creatinine 0.7 L Lactic Acid 2.20 H* Calcium 7.9 L Total Protein Urine WBC (Auto) 04/26/18 04/26/18 04/27/18 16:39 16:39 05:17 WBC 12.2 H RBC Hgb 11.4 L Hct 33.8 L RDW 16.3 H 16.2 H Lymph % (Auto) 6.6 L [place] % (Auto) 8.1 H Lymph # 0.7 L [place] # 0.9 H Seg Neutrophils % 84.2 H Seg Neuts % (Manual) 89.0 H Lymphocytes % (Manual) 6.0 L Seg Neutrophils # 9.0 H Seg Neutrophils # Man 10.9 H Lymphocytes # (Manual) 0.7 L APTT Sodium 135 L D Chloride Carbon Dioxide Creatinine 0.6 L Lactic Acid Calcium 8.2 L Total Protein Urine WBC (Auto)
--- NOTE | 2018-04-29 18:08 | Event Note ---
Date: 04/29/18 Patient reportedly signed out against medical advice
--- NOTE | 2018-05-09 12:24 | Discharge Summary ---
Providers - Providers Date of Admission: 04/24/18 23:26 Date of discharge: 04/29/18 Attending physician: JERZY GUTIERREZ 04/24/18 19:58 Consult to Physician [CONS] Urgent Comment: Consulting Provider: TALIB COHEN Physician Instructions: Reason For Exam: staghorn stone 04/25/18 04:34 Consult to Wound/ET Nurse [CONS] Routine Reason For Exam: wound eval 04/27/18 07:46 Consult to Physician [CONS] Routine Comment: Consulting Provider: JOANIE HOPKINS Physician Instructions: Reason For Exam: persistent fever 04/28/18 15:02 Consult to Physician [CONS] Routine Comment: Consulting Provider: MARINA BRITO Physician Instructions: Reason For Exam: mucous plugging 04/29/18 08:54 PICC Line Insertion [Consult to PICC Line RN] [CONS] Routine Reason For Exam: need iv abx Type Line:: PICC 04/29/18 10:08 Consult to Case Management [CONS] Stat Services Needed at Discharge: Home Health Services Notified:: no Additional Physician Instructions: [facility] M [phone] O [phone] F [phone] OUTPATIENT PARENTERAL ANTIBIOTIC THERAPY ORDERS Diagnoses: Paraplegic- Complicated UTI with renal calculi and chronic bilateral hydronephrosis Antimicrobial administration: - will be discharged on Cefepime 2gm IV every 12 hours for 14 days ending 05-08-18 Remove PICC line after last dose unless otherwise instructed. Lines: PICC Lab monitoring: CBC, BUN, Creatinine, ALT, AST, once a week preferly on Monday morning. Please fax results to [phone] and call [phone] for critical lab results. Leidy Kumar NP/Elvi Benavides MD Date: 04/29/18 04/29/18 11:48 Midline [Consult to PICC Line RN] [CONS] Urgent Reason For Exam: outpatient antibiotic therapy Type Line:: Midline Primary care physician: VIOLETA ROSALES Hospitalization Condition: Fair Hospital course: Patient is 33 year old man, paraplegic, was sent to the ER for evaluation of nausea, vomiting, fever, chills and small amount of blood in urine. He was seen and evaluated in ED. CT Abd/pelvis revealed staghorn calculus right and bilateral hydronephrosis. He was admitted and Nephrology and Urology consulted. He was evaluated by Urologist but nephrostomy not recommended. He was started on iv Abx, evaluated by ID Physician. Patient diagnosed with sepsis due to complicated UTI was treated with Cefepime. He improved, leukocytosis resolved. However he suddenly left against medical advice on 04/29/18. Hydronephrosis chronic. Total time spent on discharge, 32 mins R Disposition: [id number] LEFT AGAINST MED ADVICE - Discharge Diagnoses (1) Acute UTI (urinary tract infection) Status: Acute (2) Leukocytosis Status: Acute Qualifiers: Leukocytosis type: monocytosis Qualified Code(s): D72.821 - Monocytosis (symptomatic) (3) Metabolic acidosis Status: Acute (4) Sepsis Status: Acute Qualifiers: Sepsis type: sepsis due to unspecified organism Qualified Code(s): A41.9 - Sepsis, unspecified organism (5) Paraplegia Status: Chronic (6) Catheter-associated urinary tract infection Status: Suspected Qualifiers: Encounter type: initial encounter (7) Hydronephrosis Status: Acute (8) Left against medical advice Status: Acute Core Measure Documentation - Palliative Care Palliative Care/ Comfort Measures: Not Applicable - Core Measures Any of the following diagnoses?: none Exam - Constitutional Vitals: Temp Pulse Resp BP Pulse Ox 97.5 F L 76 19 137/98 98 04/29/18 11:22 04/28/18 23:13 04/29/18 11:22 04/29/18 11:22 04/28/18 23:13 Plan Follow up with: VIOLETA ROSALES MD [Primary Care Provider] - 3-5 Days
== END 2018-04-29 13:30 | disposition left against medical advice (07) | DRG 871 ==
LOC: ED 17:21 → 3A 23:26
PROVIDERS: ADMIT Internal Medicine; ATTEND Internal Medicine
DX: A41.9 Sepsis, unspecified organism (principal); E43 Unspecified severe protein-calorie malnutrition; N39.0 Urinary tract infection, site not specified; G82.20 Paraplegia, unspecified; F41.9 Anxiety disorder, unspecified; N13.2 Hydronephrosis with renal and ureteral calculous obstruction; Z82.49 Family history of ischemic heart disease and other diseases of the circulatory system; Z90.2 Acquired absence of lung [part of]
CPT/HCPCS: 36415; 71045; 71250; 74176; 80048; 80053; 81001; 82140; 82550; 85007; 85025; 85610; 85730; 87040; 87086; 93005; 93010; G0378; J0692; J1650; J2405; J3010; J3370; J7030; J7050

== ENCOUNTER 2018-11-05 12:51 | Emergency (ER) | payer MEDICAID ==
[2018-11-05] MEDS ORDERED: NACL 0.9% 1000 ML 2,000 ML IV ONE (13:33)
[2018-11-05] MEDS ORDERED: ZOFRAN IV ONE (14:12)
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
[2018-11-05 14:58] LABS: Basophils # (Auto) 0.1 K/mm3 (0.0-0.1); Basophils % (Auto) 0.4 % (0.0-1.8); Eosinophils % (Auto) 0.2 % (0.0-4.3); Hematocrit 32.7 % (35.5-45.6); Lymphocytes # (Auto) 0.7 K/mm3 (1.2-5.4); Lymphocytes % (Auto) 4.4 % (13.4-35.0); Mean Corpuscular HGB Conc 34 % (32-34); Mean Corpuscular Volume 89 fl (84-94); Monocytes # (Auto) 0.9 K/mm3 (0.0-0.8); Monocytes % (Auto) 5.6 % (0.0-7.3); Platelet Count 326 K/mm3 (140-440); Red Blood Count 3.69 M/mm3 (3.65-5.03); Red Cell Distribution Width 15.7 % (13.2-15.2)
--- NOTE | 2018-11-05 15:03 | XRay Report ---
CHEST 1 VIEW INDICATION / CLINICAL INFORMATION: sepsis n/v weak. COMPARISON: None available. FINDINGS: SUPPORT DEVICES: None. HEART / MEDIASTINUM: No significant abnormality. LUNGS / PLEURA: Large right pleural effusion. The left lung is grossly clear. Patchy consolidation of the right midlung. Signer Name: Sterling Aragon MD Signed: 11/05/2018 2:58 PM Workstation Name: [id number]
[2018-11-05 15:18] LABS: Albumin 2.7 g/dL (3.9-5); BUN/Creatinine Ratio 21; Blood Urea Nitrogen 25 mg/dL (9-20); Calcium 7.8 mg/dL (8.4-10.2); Hemolysis Index 137
[2018-11-05] MEDS ORDERED: LEVAQUIN 750MG/150ML 750 MG/150 ML BAG IV ONE (15:20)
[2018-11-05 15:49] LABS: Alanine Aminotransferase 11 units/L (7-56)
[2018-11-05] MEDS ORDERED: NACL 0.9% 1000 ML 1,000 ML ONE (16:16)
[2018-11-05 16:39] LABS: INR 1.19 (0.87-1.13)
--- NOTE | 2018-11-05 17:04 | Cat Scan Report ---
CT CHEST WITHOUT CONTRAST INDICATION / CLINICAL INFORMATION: cough weak hx of mucous plugging, pneumonectomy. TECHNIQUE: Axial CT images were obtained through the chest without contrast. All CT scans at this location are p erformed using CT dose reduction for ALARA by means of automated exposure control. COMPARISON: None available. FINDINGS: There is severe left to right mediastinal shift secondary to chronic right-sided pneumonectomy type c hange. A large amount of aspirate is seen within the residual distal right main stem bronchus. Small loculated right-sided pleural effusion is present. The left lung is hyperexpanded and appears grossly clear. The heart size is difficult to assess given the shifting nature but appears within normal siz e limits. Hypoplasia of the right ribs/chest wall noted consistent with remote right-sided pneumonect ayana. IMPRESSION: Severe mucous plugging within the residual distal right mainstem bronchus with intermixed fluid that appears to communicate with the right pleural space. The left lung remains clear. Signer Name: Sterling Aragon MD Signed: 11/05/2018 4:59 PM Workstation Name: [id number]
[2018-11-05 17:08] LABS: Bacteria,Urine 1+ /HPF (Negative); Bilirubin,Urine NEG (Negative); Blood,Urine MOD (Negative); Color,Urine Yellow (Yellow); Mucus,Urine FEW /HPF; Urobilinogen,Urine < 2.0 mg/dL (<2.0); WBC,Urine > 182.0 /HPF (0.0-6.0)
--- NOTE | 2018-11-05 17:08 | Cat Scan Report ---
CT ABDOMEN AND PELVIS WITHOUT CONTRAST INDICATION / CLINICAL INFORMATION: Severe worsening abdominal pain with known staghorn calculus on the right. TECHNIQUE: Axial CT images were obtained through the abdomen and pelvis without IV contrast. All CT scans at [facility] location are performed using CT dose reduction for ALARA by means of automated exposure control. COMPARISON: 04/24/2018 FINDINGS: LOWER CHEST: No significant abnormality. LIVER: No significant abnormality. GALLBLADDER: Removed. BILE DUCTS: No significant abnormality. PANCREAS: No significant abnormality. SPLEEN: No significant abnormality. ADRENALS: No significant abnormality. RIGHT KIDNEY and URETER: Staghorn calculus with hydronephrosis, unchanged LEFT KIDNEY and URETER: Severe left hydronephrosis. STOMACH and SMALL BOWEL: No significant abnormality. COLON: No significant abnormality. APPENDIX: No significant abnormality. PERITONEUM: No free fluid. No free air. No fluid collection. LYMPH NODES: No significant adenopathy. AORTA and ARTERIES: No significant abnormality. IVC and VEINS: No significant abnormality. URINARY BLADDER: Suprapubic catheter which is drained a severely thickened urinary bladder wall, koby lar to prior exam. Large calculi seen dependently. REPRODUCTIVE ORGANS: No significant abnormality. ADDITIONAL FINDINGS: None. SKELETAL SYSTEM: Several lytic lesions within the right iliac wing and left iliac wing appears stable from the prior exam. IMPRESSION: 1. Severe thickening of the urinary bladder which is drained by a suprapubic catheter. Underlying sev ere cystitis is suspected. 2. Large staghorn calculus of the right kidney with bilateral hydroureteronephrosis, unchanged from F ebruary 2019. Signer Name: Sterling Aragon MD Signed: 11/05/2018 5:03 PM Workstation Name: [id number]
[2018-11-05] MEDS ORDERED: XYLOCAINE 2%/EPI 1:100,000 INFILTRATI ONE (17:35)
[2018-11-05] MEDS ORDERED: NACL 0.9% 1000 ML 1,000 ML IV ONE (17:52)
[2018-11-05] MEDS ORDERED: LEVOPHED DRIP 4 MG/NS 250 ML 4 MG/250 ML BAG IV SCH (18:00)
[2018-11-05 20:47] VITALS: BP 109/74
== END 2018-11-05 21:08 | disposition short-term general hospital (02) ==
LOC: ED 12:51
DX: N39.0 Urinary tract infection, site not specified (principal); A41.9 Sepsis, unspecified organism; J98.09 Other diseases of bronchus, not elsewhere classified; R09.89 Other specified symptoms and signs involving the circulatory and respiratory systems; I95.9 Hypotension, unspecified; N13.30 Unspecified hydronephrosis; Z90.2 Acquired absence of lung [part of]
CPT/HCPCS: 36415; 36556; 71045; 71250; 74176; 80053; 81001; 82140; 82550; 83735; 84484; 85025; 85610; 85730; 87040; 87086; 93005; 93010; 96365; 96367; 96375; 99291; 99292; J1956; J2405; J7030

== ENCOUNTER 2021-07-31 22:13 | Inpatient (IN) | payer MEDICAID ==
[2021-07-31] MEDS ORDERED: LORazepam 2 MG/ML VIAL IV ONE (22:52)
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
--- NOTE | 2021-07-31 23:56 | XRay Report ---
CHEST 1 VIEW INDICATION / CLINICAL INFORMATION: Shortness of breath. COMPARISON: Chest x-ray 11/05/2018 FINDINGS: SUPPORT DEVICES: None. HEART / MEDIASTINUM: Cardiac silhouette shifted rightward. LUNGS / PLEURA: Left lung appears hyperexpanded and otherwise clear. Complete opacification of the ri ght hemithorax remains present and unchanged from comparison. Small lucencies within the superior lat eral right hemithorax may reflect small collections of air within atelectatic lung. BONES: No significant osseous abnormality. ADDITIONAL FINDINGS: No significant additional findings. IMPRESSION: 1. Hyperexpansion of the left lung. Left lung is clear. 2. Complete opacification of the right chest with shift of mediastinal structures suggesting atelecta sis and/or pleural effusion. Signer Name: John Wilder II, MD Signed: 07/31/2021 11:51 PM Workstation Name: [id number]
[2021-08-01 00:17] LABS: Creatine Kinase MB 1.9 ng/mL (0.0-4.0)
[2021-08-01 00:20] LABS: BUN/Creatinine Ratio 21; Blood Urea Nitrogen 27 mg/dL (9-20); Calcium 9.2 mg/dL (8.4-10.2); Hemolysis Index 19
[2021-08-01 02:37] LABS: Hematocrit 37.3 % (35.5-45.6); Hemoglobin 11.7 gm/dl (11.8-15.2); Mean Corpuscular HGB Conc 32 % (32-34); Mean Corpuscular Volume 76 fl (84-94); Platelet Count 350 K/mm3 (140-440); Red Cell Distribution Width 18.6 % (13.2-15.2)
[2021-08-01] MEDS ORDERED: LORazepam 2 MG/ML VIAL ONE (03:30)
[2021-08-01] MEDS ORDERED: SODIUM CHLORIDE 0.9% 1000 ML 1,000 ML IV ONE ×2 (04:46→04:47)
[2021-08-01] MEDS ORDERED: PIPERACIL/TAZOBACTA 4.5/NS 100 4.5 GM/100 ML VIAL IV ONE (04:53)
[2021-08-01 05:45] LABS: Anisocytosis 1+; Basophils % (Manual) 0 % (0.0-1.8); Eosinophils % (Manual) 0 % (0.0-4.3); Platelet Estimate Consistent w Auto; Total Cells Counted 100
--- NOTE | 2021-08-01 05:57 | Cat Scan Report ---
CTA CHEST WITH CONTRAST INDICATION / CLINICAL INFORMATION: Shortness of breath. TECHNIQUE: Axial CT images were obtained through the chest after injection of 100 cc Omnipaque 350 IV contrast. 3 plane MIP and/or 3D reconstructions were produced. All CT scans at this location are per formed using CT dose reduction for ALARA by means of automated exposure control. COMPARISON: None available. FINDINGS: VASCULAR FINDINGS: PULMONARY ARTERY: Pulmonary artery is normal in size. No filling defects are present compatible with pulmonary artery embolus.. THORACIC AORTA: No significant abnormality. CORONARY ARTERY CALCIFICATION: Absent -- None. NONVASCULAR FINDINGS: LOWER NECK: Soft tissues and musculature of the lower neck demonstrate no significant abnormality. Th e thyroid demonstrates no significant abnormality. HEART: The heart is completely displaced within the right chest is result of totally atelectatic righ t lung and hyperexpansion of the left. MEDIASTINUM / LICO: No significant abnormality. ESOPHAGUS: No significant abnormality. LYMPH NODES: No adenopathy within the axilla, mediastinum, or lico. LUNGS: The right lung is totally atelectatic with exception of a few of the smaller airways within th e right upper lung contains some air. The right main bronchus is occluded with fluid prior to bifurca tion. Multiple airways within the upper and lower lung additionally are opacified with fluid. Left melanie ng demonstrates hyperexpansion and is otherwise clear. PLEURA: No pleural effusion. No pneumothorax. THORACIC SOFT TISSUES: No significant abnormality of the chest wall or upper thoracic musculature. BONES: No significant skeletal abnormalities. ADDITIONAL CHEST FINDINGS: None. UPPER ABDOMEN: The kidneys bilaterally demonstrate multiple calcifications as well as moderate bilate ral hydronephrosis. Partially imaged left-sided stent not excluded. IMPRESSION: 1. Completely atelectatic right lung with exception of a few small airways within the upper lobe cont aining air. The right main bronchus obstructed with fluid proximal to the bifurcation and multiple lo bar and segmental airways additionally are filled with fluid. 2. No evidence of pulmonary artery embolus. 3. Multiple right nephroliths and calyceal casts. Bilateral hydronephrosis and partially imaged left ureteral stent. Signer Name: John Wilder II, MD Signed: 08/01/2021 5:52 AM Workstation Name: [id number]
[2021-08-01] MEDS ORDERED: HYDROmorphone 0.5 MG/0.5 ML INJ IV PRN (07:46)
[2021-08-01] MEDS ORDERED: ACETAMINOPHEN 325 MG TAB PO PRN (07:46)
[2021-08-01] MEDS ORDERED: VANCOMYCIN 1,000 MG in SODIUM CHLORIDE 0.9% 500 ML 500 ML IV ONE (07:46)
[2021-08-01] MEDS ORDERED: ALBUTEROL 2.5 MG/3 ML NEBU IH PRN (07:54)
[2021-08-01] MEDS ORDERED: NALOXONE 0.4 MG/1 ML INJ IV PRN (07:54)
[2021-08-01] MEDS ORDERED: IBUPROFEN 600 MG TAB PO PRN (07:54)
[2021-08-01] MEDS ORDERED: oxyCODONE /ACETAMINOPHEN 5-325MG TAB PO PRN (07:54)
[2021-08-01] MEDS ORDERED: VANCOMYCIN PHARMACY TO DOSE IV SCH (08:00)
[2021-08-01] MEDS ORDERED: NORepinephrine/NS 8 MG-250 ML 8 MG/250 ML INFUS..BTL IV SCH (08:00)
[2021-08-01] MEDS ORDERED: VANCOMYCIN/NS 1 GM/250 ML 1 GM/250 ML BAG IV ONE (09:00)
[2021-08-01] MEDS ORDERED: SODIUM CHLORIDE 0.9% 1000 ML IV SOLN IV ONE (09:00)
[2021-08-01] MEDS: MIDODRINE 10 MG TAB PO SCH ×3 (09:47→16:45)
[2021-08-01] MEDS: methIMAzole 5 MG TAB PO SCH (09:48)
[2021-08-01] MEDS: CEFEPIME/NS 2 GM/100 ML 2 GM/100 ML BAG IV SCH ×3 (09:58→23:37)
[2021-08-01] MEDS: SENNOSIDES 8.6 MG TAB PO SCH ×2 (10:00→10:39)
[2021-08-01 10:56] LABS: Bacteria,Urine 1+ /HPF (Negative); Bilirubin,Urine NEG (Negative); Blood,Urine LG (Negative); Color,Urine Yellow (Yellow); Mucus,Urine 2+ /HPF; Urobilinogen,Urine < 2.0 mg/dL (<2.0)
[2021-08-01 10:58] LABS: WBC,Urine > 182.0 /HPF (0.0-6.0)
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
[2021-08-02 04:09] LABS: Basophils # (Auto) 0.1 K/mm3 (0.0-0.1); Basophils % (Auto) 0.4 % (0.0-1.8); Eosinophils # (Auto) 0.1 K/mm3 (0.0-0.4); Eosinophils % (Auto) 0.7 % (0.0-4.3); Hematocrit 26.2 % (35.5-45.6); Hemoglobin 8.2 gm/dl (11.8-15.2); Lymphocytes # (Auto) 1.4 K/mm3 (1.2-5.4); Lymphocytes % (Auto) 6.9 % (13.4-35.0); Mean Corpuscular HGB Conc 32 % (32-34); Mean Corpuscular Volume 76 fl (84-94); Monocytes # (Auto) 0.9 K/mm3 (0.0-0.8); Monocytes % (Auto) 4.5 % (0.0-7.3); Platelet Count 305 K/mm3 (140-440); Red Blood Count 3.43 M/mm3 (3.65-5.03); Red Cell Distribution Width 18.1 % (13.2-15.2)
[2021-08-02 04:24] LABS: Alanine Aminotransferase 16 units/L (7-56); BUN/Creatinine Ratio 24; Blood Urea Nitrogen 22 mg/dL (9-20); Calcium 8.7 mg/dL (8.4-10.2); Hemolysis Index 4
[2021-08-02] MEDS ORDERED: SODIUM CHLORIDE 0.9% 500 ML 500 ML IV ONE (07:40)
[2021-08-02] MEDS: CEFEPIME/NS 2 GM/100 ML 2 GM/100 ML BAG IV SCH ×2 (08:14→16:37)
[2021-08-02] MEDS: MIDODRINE 10 MG TAB PO SCH ×3 (08:15→16:37)
[2021-08-02] MEDS ORDERED: VANCOMYCIN 750 MG in SODIUM CHLORIDE 0.9% 250ML 250 ML IV SCH (09:00)
[2021-08-02] MEDS: methIMAzole 5 MG TAB PO SCH (09:49)
[2021-08-02] MEDS: SENNOSIDES 8.6 MG TAB PO SCH ×2 (09:49→21:52)
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
[2021-08-03] MEDS: CEFEPIME/NS 2 GM/100 ML 2 GM/100 ML BAG IV SCH ×2 (00:43→09:22)
[2021-08-03 06:00] LABS: Hematocrit 25.9 % (35.5-45.6); Hemoglobin 8.1 gm/dl (11.8-15.2); Mean Corpuscular HGB Conc 32 % (32-34); Mean Corpuscular Volume 76 fl (84-94); Platelet Count 295 K/mm3 (140-440); Red Blood Count 3.42 M/mm3 (3.65-5.03); Red Cell Distribution Width 18.1 % (13.2-15.2)
[2021-08-03 06:21] LABS: BUN/Creatinine Ratio 18; Blood Urea Nitrogen 14 mg/dL (9-20); Calcium 8.3 mg/dL (8.4-10.2); Hemolysis Index 0
[2021-08-03] MEDS: MIDODRINE 10 MG TAB PO SCH ×2 (08:35→13:36)
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
[2021-08-03] MEDS: SENNOSIDES 8.6 MG TAB PO SCH (12:24)
[2021-08-03] MEDS: methIMAzole 5 MG TAB PO SCH (12:24)
[2021-08-03 12:50] VITALS: BP 102/59
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
--- NOTE | 2021-08-04 09:05 | Electrocardiograph Report ---
[facility] Test Date: 2021-08-03 Test Time: 10:50:49 Pat Name: ZAIDA RICH Department: Room: A384 1 Gender: M [place] Singer: AUTUMN : 1985 Requested By: NASEEM MARIO Order Number: [id number] Reading MD: Vick Menchaca Measurements Intervals [place] Rate: 75 P: 53 DC: 134 QRS: 70 QRSD: 91 T: 109 QT: 408 QTc: 455 Interpretive Statements Sinus rhythm nonspecific st-t Compared to ECG 08/01/2021 06:09:02 Early repolarization now present T-wave abnormality no longer present ST (T wave) deviation no longer present Myocardial infarct finding no longer present Prolonged QT interval no longer present Possible ischemia still present Electronically Signed On 08-04-2021 9:04:40 EDT by Vick Menchaca
== END 2021-08-03 17:08 | disposition home health service (06) | DRG 871 ==
LOC: ED 22:13 → CC1 08-01 07:54 → IMCU 08-01 10:53 → CC1 08-01 15:46 → 3A 08-02 21:23
PROVIDERS: ADMIT Internal Medicine; ATTEND Internal Medicine
PROC: 06HM33Z Insertion of Infusion Device into Right Femoral Vein, Percutaneous Approach (ICD-10-PCS; principal; 2021-08-01)
DX: A41.89 Other specified sepsis (principal); R65.21 Severe sepsis with septic shock; E43 Unspecified severe protein-calorie malnutrition; J18.9 Pneumonia, unspecified organism; G82.20 Paraplegia, unspecified; J98.09 Other diseases of bronchus, not elsewhere classified; R82.81 Pyuria; E05.90 Thyrotoxicosis, unspecified without thyrotoxic crisis or storm; Z82.49 Family history of ischemic heart disease and other diseases of the circulatory system; N13.6 Pyonephrosis; Z68.1 Body mass index [BMI] 19.9 or less, adult
CPT/HCPCS: 36415; 71045; 71275; 80048; 80053; 81001; 82140; 82550; 82553; 82962; 83880; 84439; 84443; 84484; 85007; 85025; 85027; 85379; 86850; 86900; 86901; 87040; 87070; 87205; 87641; 93005; 93970; 94640; 94667; G0378; J2354; J0692; J2060; J2543; J3370; J7030; J7040; J7050; Q9967